=== PATIENT | male | born 1955 | race Caucasian/White ===

== ENCOUNTER 2020-06-20 04:59 | Inpatient (IN) ==
[2020-06-20] MEDS ORDERED: Aspirin 81 MG TAB.CHEW PO ONE (05:27)
[2020-06-20] MEDS ORDERED: *HR* Heparin 5,000 UNIT/ML VIAL ONE (05:31)
[2020-06-20] MEDS: *HR* Ticagrelor 90 MG TABLET ONE (05:33)
[2020-06-20] MEDS ORDERED: *HR* Ticagrelor 90 MG TABLET PO ONE (05:38)
[2020-06-20] MEDS ORDERED: *HR* Heparin 5,000 UNIT/ML VIAL IVP ONE (05:38)
[2020-06-20] MEDS ORDERED: *HR* Heparin 5,000 UNIT/ML VIAL IVP PRN ×2 (05:38)
[2020-06-20] MEDS ORDERED: Nitroglycerin 0.4 MG TAB.SUBL SL ONE (05:43)
[2020-06-20] MEDS ORDERED: 0.9 % Sodium Chloride 1,000 ML ONE ×2 (05:43→07:13)
[2020-06-20] MEDS ORDERED: Morphine Sulfate 2 MG/ML SYRINGE IVP ONE (05:44)
[2020-06-20] MEDS ORDERED: ISOVUE-370 200 ML INFUS..BTL ONE ×4 (05:50→07:11)
[2020-06-20] MEDS ORDERED: *HR* Heparin 10,000 UNIT/10 ML VIAL ONE ×2 (05:50→07:14)
[2020-06-20] MEDS ORDERED: 0.9 % Sodium Chloride 2,000 ML ONE (05:50)
[2020-06-20] MEDS ORDERED: Heparin 1,000 UNITS/500 mL 500 ML ONE ×5 (05:50→07:18)
[2020-06-20] MEDS ORDERED: Nitroglycerin 1,000 MCG/10 ML VIAL IV ONE (05:50)
[2020-06-20 05:53] LABS: Basophils % 0.4 %; Eosinophils # 0.1 K/mcL (0.0-0.6); Hematocrit 45.8 % (37.5-50.1); Hemoglobin 15.3 g/dL (12.9-16.9); Immature Granulocytes % 0.4 % (0-4); Lymphocytes # 1.7 K/mcL (0.6-4.6); Lymphocytes % 17.7 %; Mean Corpuscular HGB Conc 33.4 g/dL (31.6-35.5); Mean Corpuscular Hemoglobin 31.4 pg (28.0-33.3); Mean Platelet Volume 12.3 fL (9.4-12.4); Monocytes # 0.8 K/mcL (0.0-1.3); Monocytes % 8.5 %; Neutrophils # 6.7 K/mcL (1.6-8.9); Platelet Count 190 K/mcL (140-400); Red Blood Count 4.87 M/mcL (4.19-5.50); Red Cell Distribution Width 12.8 % (11.5-14.5); White Blood Count 9.4 K/mcL (4.3-11.1)
[2020-06-20 05:58] LABS: Prothrombin Time 11.1 Seconds (9.4-12.1)
[2020-06-20 06:01] LABS: Activated Partial Thrombo Time 38.1 Seconds (26.0-36.0)
[2020-06-20] MEDS: Heparin 25,000 UNIT/250 ML D5W 25,000 UNIT/250 ML IV.SOLN IVC SCH (06:01)
[2020-06-20 06:02] LABS: BUN/Creatinine Ratio 21 (6-26); Blood Urea Nitrogen 22 mg/dL (8-23); Calcium 10.3 mg/dL (8.6-10.3); Carbon Dioxide 22 mEq/L (23-29); Chloride 99 mEq/L (98-107); Glucose 367 mg/dL (70-105); Magnesium 1.7 mg/dL (1.6-2.6); Osmolality,Calculated 298 (280-300); Potassium 3.5 mEq/L (3.5-5.1); Sodium 135 mEq/L (136-145); eGFR For African Americans > 60 (> 60); eGFR For Non-African Americans > 60 (> 60)
[2020-06-20 06:04] LABS: Troponin I 0.12 ng/mL (< 0.04)
[2020-06-20 06:07] LABS: Heparin anti-factor XA UFH < 0.04 IU/mL (0.30-0.70)
[2020-06-20] MEDS ORDERED: *HR* FentaNYL (PF) 100 MCG/2 ML VIAL ONE ×2 (06:22→07:21)
[2020-06-20] MEDS ORDERED: *HR* Midazolam HCl 2 MG/2 ML VIAL ONE (06:22)
[2020-06-20] MEDS ORDERED: *HR* Midazolam HCl 5 MG/5 ML VIAL IVP ONE ×2 (07:37→11:25)
[2020-06-20] MEDS ORDERED: Tranexamic Acid 1,000 MG/10 ML VIAL ONE ×2 (07:37→09:50)
[2020-06-20] MEDS ORDERED: Famotidine 20 MG/2 ML VIAL ONE (07:37)
[2020-06-20] MEDS ORDERED: *HR* Etomidate 20 MG/10 ML AMPUL IVP ONE (07:37)
[2020-06-20] MEDS ORDERED: *HR* FentaNYL (PF) 1,000 MCG/20 ML VIAL ONE (07:37)
[2020-06-20] MEDS ORDERED: Calcium Gluconate 1,000 MG/10 ML VIAL ONE (07:37)
[2020-06-20] MEDS ORDERED: *HR* PHENYLEPHRINE 1,000 MCG/10 ML SYRINGE IVP ONE ×2 (07:37→13:08)
[2020-06-20] MEDS ORDERED: Protamine Sulfate 250 MG/25 ML VIAL IVP ONE (07:37)
[2020-06-20] MEDS ORDERED: *HR* Rocuronium Bromide 50 MG/5 ML VIAL ONE ×4 (07:37→12:31)
[2020-06-20] MEDS ORDERED: Ondansetron 4 MG/2 ML VIAL IVP PRN (07:57)
[2020-06-20] MEDS ORDERED: CeFAZolin Syr 3,000MG/30 ML 3,000 MG/30 ML SYRINGE IVPB ONE (08:50)
[2020-06-20] MEDS ORDERED: NiCARdipine 2.5 MG/10 ML Syringe IVPB ONE (09:03)
[2020-06-20 09:45] LABS: Estimated Average Glucose 189 mg/dl
[2020-06-20] MEDS ORDERED: Dextrose 50 % in Water (Vial) 30 ML, Sodium Bicarbonate 20 MEQ, Lidocaine 1% 5 ML, Insu... TH ONE ×3 (09:45)
[2020-06-20] MEDS ORDERED: Heparin 15,000 UNIT in 0.9 % Sodium Chloride 500 ML IV ONE (09:45)
[2020-06-20] MEDS ORDERED: Dextrose 50 % in Water (Vial) 30 ML, Sodium Bicarbonate 20 MEQ, Potassium Chloride 15 M... TH ONE (09:45)
[2020-06-20] MEDS ORDERED: Insulin Human Regular 100 UNIT in 0.9 % Sodium Chloride 100 ML IV PRN (09:45)
[2020-06-20] MEDS ORDERED: Norepinephrine 4 MG in 0.9 % Sodium Chloride 250 ML IVC PRN (09:45)
[2020-06-20] MEDS ORDERED: *HR* FentaNYL (PF) 250 MCG/5 ML VIAL ONE (11:25)
[2020-06-20] MEDS ORDERED: Albumin Human 5% 50.0 GM/1,000 ML IV.SOLN ONE (12:17)
[2020-06-20] MEDS ORDERED: niCARdipine 20 MG/200 ML MLS IVC ONE (12:23)
[2020-06-20] MEDS ORDERED: *HR* FentaNYL (PF) 100 MCG/2 ML VIAL IVP PRN (13:00)
[2020-06-20] MEDS ORDERED: *HR* Dextrose 50 % in Water (Vial) 50 ML VIAL IVP PRN (13:00)
[2020-06-20] MEDS ORDERED: Naloxone 0.4 MG/ML INJ IVP PRN (13:00)
[2020-06-20] MEDS ORDERED: Norepinephrine 4 MG/254 ML IV.SOLN IVC SCH (13:00)
[2020-06-20] MEDS ORDERED: Acetaminophen 650 MG RECTAL SUPP RC PRN (13:00)
[2020-06-20] MEDS ORDERED: Calcium Gluconate 1gm/50mL 1 GM/50 ML BAG IVPB PRN (13:00)
[2020-06-20] MEDS ORDERED: Insulin Regular, Human 100 UNIT/ML IV PRN (13:00)
[2020-06-20] MEDS ORDERED: EPINEPHrine 1 MG/ML VIAL ONE (13:09)
[2020-06-20] MEDS ORDERED: *HR* Magnesium Sulfate 2 GM/50 ML PIGGYBACK IVPB ONE (13:34)
[2020-06-20] MEDS ORDERED: *HR* Phenylephrine 10 MG/ML VIAL IVC ONE (13:34)
[2020-06-20] MEDS ORDERED: *HR* Heparin 10,000 UNIT/10 ML VIAL IR ONE (13:34)
[2020-06-20] MEDS ORDERED: Tranexamic Acid 1,000 MG/10 ML VIAL IR ONE (13:34)
[2020-06-20] MEDS ORDERED: Albumin Human 25% 25 GM/100 ML IV.SOLN IVPB ONE (13:34)
[2020-06-20] MEDS ORDERED: Mannitol 25% vial 12.5 GM/50 ML VIAL IVPB ONE (13:34)
[2020-06-20] MEDS ORDERED: Heparin 1,000 UNITS/500 mL IV.SOLN IR ONE (13:34)
[2020-06-20] MEDS ORDERED: Lidocaine 2% Syringe 100 MG/5 ML IVP ONE (13:34)
[2020-06-20] MEDS ORDERED: Sodium Bicarbonate 50 MEQ/50 ML VIAL IVP ONE (13:34)
[2020-06-20] MEDS ORDERED: D5% in Water 250 ML IV BAG IV ONE (13:34)
[2020-06-20] MEDS: niCARdipine 20 MG/200 ML MLS IVC SCH ×3 (13:40→21:47)
[2020-06-20] MEDS: Insulin Human Regular 100 UNIT in 0.9 % Sodium Chloride 100 ML IVC SCH ×3 (13:40→22:17)
[2020-06-20 14:08] LABS: Hematocrit 38.1 % (37.5-50.1); Mean Corpuscular HGB Conc 33.6 g/dL (31.6-35.5); Mean Corpuscular Hemoglobin 32.5 pg (28.0-33.3); Mean Corpuscular Volume 96.7 fL (83.0-100.0); Mean Platelet Volume 11.2 fL (9.4-12.4); Platelet Count 165 K/mcL (140-400); Red Blood Count 3.94 M/mcL (4.19-5.50); Red Cell Distribution Width 12.8 % (11.5-14.5)
[2020-06-20 14:09] LABS: Hemoglobin 12.8 g/dL (12.9-16.9); White Blood Count 25.1 K/mcL (4.3-11.1)
[2020-06-20 14:17] LABS: INR 1.3
[2020-06-20 14:20] LABS: Activated Partial Thrombo Time 30.1 Seconds (26.0-36.0)
[2020-06-20 14:23] LABS: BUN/Creatinine Ratio 16 (6-26); Blood Urea Nitrogen 16 mg/dL (8-23); Calcium 7.7 mg/dL (8.6-10.3); Carbon Dioxide 28 mEq/L (23-29); Chloride 106 mEq/L (98-107); Glucose 223 mg/dL (70-105); Magnesium 2.1 mg/dL (1.6-2.6); Osmolality,Calculated 298 (280-300); Potassium 4.1 mEq/L (3.5-5.1); Sodium 140 mEq/L (136-145); eGFR For African Americans > 60 (> 60); eGFR For Non-African Americans > 60 (> 60)
[2020-06-20 14:29] LABS: Prothrombin Time 14.9 Seconds (9.4-12.1)
[2020-06-20 14:55] LABS: ABG Base Excess -3 mEq/L (-2 to 3); ABG HCO3 27 mEq/L (21-27); ABG Oxygen Saturation 86 % (95-98); ABG PCO2 76 mmHg (35-45); ABG PH 7.16 pH Units (7.32-7.45); ABG PO2 68 mmHg (85-104); ABG TCO2 29 mEq/L (20-26); Blood Gas Modality ASSIST CONTROL; Blood Gas VT 750 cc
[2020-06-20 14:55] LABS: Lymphocytes # 3.5 K/mcL (0.6-4.6); Monocytes # 0.5 K/mcL (0.0-1.3); Neutrophils # 21.1 K/mcL (1.6-8.9); Platelet Estimate Normal (Normal)
[2020-06-20 14:55] LABS: ABG Base Excess -2 mEq/L (-2 to 3); ABG HCO3 28 mEq/L (21-27); ABG Oxygen Saturation 93 % (95-98); ABG PCO2 74 mmHg (35-45); ABG PH 7.18 pH Units (7.32-7.45); ABG PO2 85 mmHg (85-104); ABG TCO2 30 mEq/L (20-26); Blood Gas Modality ASSIST CONTROL; Blood Gas VT 750 cc
[2020-06-20] MEDS: Albumin Human 5% 12.5 GM/250 ML IV.SOLN IVPB PRN ×4 (15:10→20:02)
[2020-06-20 16:13] LABS: ABG Base Excess -2 mEq/L (-2 to 3); ABG HCO3 28 mEq/L (21-27); ABG Oxygen Saturation 99 % (95-98); ABG PCO2 80 mmHg (35-45); ABG PH 7.16 pH Units (7.32-7.45); ABG PO2 161 mmHg (85-104); ABG TCO2 31 mEq/L (20-26); Blood Gas Modality ASSIST CONTROL; Blood Gas VT 500 cc
[2020-06-20] MEDS: ceFAZolin 3,000 MG in 0.9 % Sodium Chloride 100 ML IVPB SCH ×2 (16:27→23:53)
[2020-06-20] MEDS: Ipratropium/Albuterol Neb 3 ML IH SCH ×2 (16:27→21:45)
[2020-06-20] MEDS: 0.9 % Sodium Chloride 1,000 ML IVC SCH ×2 (16:27→19:39)
[2020-06-20] MEDS: Pantoprazole 40 MG VIAL IVP SCH (16:28)
[2020-06-20] MEDS: Metoclopramide 10 MG/2 ML VIAL IVP SCH ×2 (16:28→23:53)
[2020-06-20] MEDS: MethylPREDNISolone 40 MG/ML VIAL IVP SCH (16:33)
[2020-06-20] MEDS: Budesonide/Formoterol 160/4.5 1 PUFF INH IH SCH ×2 (16:55→19:21)
[2020-06-20 17:10] LABS: ABG Base Excess -2 mEq/L (-2 to 3); ABG HCO3 28 mEq/L (21-27); ABG Oxygen Saturation 98 % (95-98); ABG PCO2 80 mmHg (35-45); ABG PH 7.15 pH Units (7.32-7.45); ABG PO2 151 mmHg (85-104); ABG TCO2 30 mEq/L (20-26); Blood Gas Modality ASSIST CONTROL; Blood Gas VT 530 cc
[2020-06-20] MEDS: Midazolam HCl 50 MG/100 ML IV.SOLN IVC SCH (18:00)
[2020-06-20] MEDS: FentaNYL (PF) 1,000 MCG/100 ML IV.SOLN IVC SCH (18:00)
[2020-06-20] MEDS ORDERED: Perflutren Lipid Microsphere 1.3 ML in 0.9 % Sodium Chloride 8.7 ML IVP PRN (18:51)
[2020-06-20] MEDS ORDERED: Calcium Chloride 2,000 MG in 0.9 % Sodium Chloride 100 ML IVPB ONE (18:55)
[2020-06-20 19:21] LABS: ABG Base Excess -1 mEq/L (-2 to 3); ABG HCO3 28 mEq/L (21-27); ABG Oxygen Saturation 99 % (95-98); ABG PCO2 76 mmHg (35-45); ABG PH 7.17 pH Units (7.32-7.45); ABG PO2 183 mmHg (85-104); ABG TCO2 30 mEq/L (20-26); Blood Gas Modality ASSIST CONTROL; Blood Gas VT 550 cc
[2020-06-20 19:40] LABS: Basophils # 0.1 K/mcL (0.0-0.2); Basophils % 0.2 %; Hematocrit 28.8 % (37.5-50.1); Immature Granulocytes % 1.8 % (0-4); Lymphocytes # 1.1 K/mcL (0.6-4.6); Lymphocytes % 4.7 %; Mean Corpuscular HGB Conc 32.6 g/dL (31.6-35.5); Mean Corpuscular Hemoglobin 32.4 pg (28.0-33.3); Mean Corpuscular Volume 99.3 fL (83.0-100.0); Mean Platelet Volume 11.6 fL (9.4-12.4); Monocytes # 2.7 K/mcL (0.0-1.3); Monocytes % 11.1 %; Neutrophils # 19.8 K/mcL (1.6-8.9); Platelet Count 143 K/mcL (140-400); Red Cell Distribution Width 13.2 % (11.5-14.5); Segmented Neutrophils % 82.2 %
[2020-06-20 19:41] LABS: Hemoglobin 9.4 g/dL (12.9-16.9)
[2020-06-20 19:42] LABS: INR 1.2
[2020-06-20 19:44] LABS: Activated Partial Thrombo Time 28.2 Seconds (26.0-36.0)
[2020-06-20 19:54] LABS: Alanine Aminotransferase 30 Units/L (7-52); Albumin 3.8 g/dL (3.5-5.7); Albumin/Globulin Ratio 2.9 (1.1-2.2); Alkaline Phosphatase 29 Units/L (34-104); Aspartate Amino Transferase 134 Units/L (13-39); BUN/Creatinine Ratio 14 (6-26); Bilirubin,Total 0.8 mg/dL (0.3-1.0); Blood Urea Nitrogen 18 mg/dL (8-23); Calcium 8.4 mg/dL (8.6-10.3); Carbon Dioxide 25 mEq/L (23-29); Chloride 107 mEq/L (98-107); Globulin 1.3 g/dL (2.4-3.5); Glucose 226 mg/dL (70-105); Osmolality,Calculated 303 (280-300); Potassium 3.9 mEq/L (3.5-5.1); Sodium 142 mEq/L (136-145); Total Protein 5.1 g/dL (6.4-8.9); eGFR For African Americans > 60 (> 60); eGFR For Non-African Americans 57 (> 60)
[2020-06-20] MEDS ORDERED: 0.9 % Sodium Chloride 500 ML ONE (20:33)
[2020-06-20] MEDS: Norepinephrine 8 MG in 0.9 % Sodium Chloride 250 ML IVC SCH (21:28)
[2020-06-20] MEDS: Chlorhexidine Rinse 15 ML MOUTHWASH MM SCH (21:47)
[2020-06-20 22:01] LABS: ABG Base Excess -1 mEq/L (-2 to 3); ABG HCO3 28 mEq/L (21-27); ABG Oxygen Saturation 88 % (95-98); ABG PCO2 72 mmHg (35-45); ABG PH 7.19 pH Units (7.32-7.45); ABG PO2 69 mmHg (85-104); ABG TCO2 30 mEq/L (20-26); Blood Gas Modality ASSIST CONTROL; Blood Gas VT 600 cc
[2020-06-21] MEDS ORDERED: Albumin Human 5% 12.5 GM/250 ML IV.SOLN ONE (01:06)
[2020-06-21] MEDS: Albumin Human 5% 12.5 GM/250 ML IV.SOLN IVPB PRN ×2 (01:22→10:30)
[2020-06-21 01:24] LABS: ABG Base Excess 3 mEq/L (-2 to 3); ABG HCO3 30 mEq/L (21-27); ABG Oxygen Saturation 96 % (95-98); ABG PCO2 66 mmHg (35-45); ABG PH 7.26 pH Units (7.32-7.45); ABG PO2 95 mmHg (85-104); ABG TCO2 32 mEq/L (20-26); Blood Gas Modality ASSIST CONTROL; Blood Gas VT 600 cc
[2020-06-21 01:33] LABS: Basophils % 0.1 %; Hematocrit 20.8 % (37.5-50.1); Immature Granulocytes % 0.9 % (0-4); Lymphocytes # 0.8 K/mcL (0.6-4.6); Mean Corpuscular HGB Conc 32.7 g/dL (31.6-35.5); Mean Corpuscular Hemoglobin 32.4 pg (28.0-33.3); Mean Platelet Volume 10.7 fL (9.4-12.4); Monocytes # 2.2 K/mcL (0.0-1.3); Monocytes % 14.2 %; Neutrophils # 12.3 K/mcL (1.6-8.9); Platelet Count 130 K/mcL (140-400); Red Cell Distribution Width 13.2 % (11.5-14.5); Segmented Neutrophils % 79.8 %; White Blood Count 15.5 K/mcL (4.3-11.1)
[2020-06-21 01:35] LABS: Hemoglobin 6.8 g/dL (12.9-16.9)
[2020-06-21] MEDS: 0.9 % Sodium Chloride 1,000 ML IVC SCH (01:54)
[2020-06-21] MEDS: Norepinephrine 8 MG in 0.9 % Sodium Chloride 250 ML IVC SCH ×3 (01:54→23:09)
[2020-06-21] MEDS: Vasopressin 40 UNIT in D5% in Water 100 ML IVC SCH ×2 (01:58→17:35)
[2020-06-21] MEDS: niCARdipine 20 MG/200 ML MLS IVC SCH ×7 (02:36→23:54)
[2020-06-21] MEDS: Heparin 25,000 UNIT/250 ML D5W 25,000 UNIT/250 ML IV.SOLN IVC SCH ×2 (02:37→23:55)
[2020-06-21] MEDS: Ipratropium/Albuterol Neb 3 ML IH SCH ×4 (03:45→21:40)
[2020-06-21] MEDS: FentaNYL (PF) 1,000 MCG/100 ML IV.SOLN IVC SCH ×3 (04:05→20:59)
[2020-06-21 05:04] LABS: ABG Base Excess 3 mEq/L (-2 to 3); ABG HCO3 31 mEq/L (21-27); ABG Oxygen Saturation 94 % (95-98); ABG PCO2 65 mmHg (35-45); ABG PH 7.29 pH Units (7.32-7.45); ABG PO2 82 mmHg (85-104); ABG TCO2 33 mEq/L (20-26); Blood Gas Modality ASSIST CONTROL; Blood Gas VT 600 cc
[2020-06-21] MEDS: MethylPREDNISolone 40 MG/ML VIAL IVP SCH ×2 (05:09→17:34)
[2020-06-21] MEDS: Metoclopramide 10 MG/2 ML VIAL IVP SCH ×4 (05:09→23:53)
[2020-06-21 06:28] LABS: Basophils % 0.1 %; Lymphocytes % 7.6 %
[2020-06-21 06:30] LABS: Hematocrit 25.4 % (37.5-50.1); Hemoglobin 8.4 g/dL (12.9-16.9); Immature Granulocytes % 0.5 % (0-4); Immature Platelets 9.5 % (1.1-6.1); Mean Corpuscular HGB Conc 33.1 g/dL (31.6-35.5); Mean Corpuscular Hemoglobin 31.2 pg (28.0-33.3); Mean Corpuscular Volume 94.4 fL (83.0-100.0); Monocytes % 15.3 %; Neutrophils # 9.8 K/mcL (1.6-8.9); Platelet Count 102 K/mcL (140-400); Red Blood Count 2.69 M/mcL (4.19-5.50); Red Cell Distribution Width 15.9 % (11.5-14.5); Segmented Neutrophils % 76.5 %; White Blood Count 12.8 K/mcL (4.3-11.1)
[2020-06-21 06:37] LABS: INR 1.2; Prothrombin Time 13.3 Seconds (9.4-12.1)
[2020-06-21 06:39] LABS: Activated Partial Thrombo Time 26.2 Seconds (26.0-36.0)
[2020-06-21 06:44] LABS: BUN/Creatinine Ratio 15 (6-26); Blood Urea Nitrogen 17 mg/dL (8-23); Carbon Dioxide 30 mEq/L (23-29); Chloride 109 mEq/L (98-107); Glucose 164 mg/dL (70-105); Magnesium 1.8 mg/dL (1.6-2.6); Osmolality,Calculated 299 (280-300); Potassium 4.1 mEq/L (3.5-5.1); Sodium 142 mEq/L (136-145); eGFR For African Americans > 60 (> 60); eGFR For Non-African Americans > 60 (> 60)
[2020-06-21] MEDS: Budesonide/Formoterol 160/4.5 1 PUFF INH IH SCH ×2 (07:12→19:51)
[2020-06-21] MEDS: Insulin Human Regular 100 UNIT in 0.9 % Sodium Chloride 100 ML IVC SCH ×2 (07:40→23:09)
[2020-06-21 08:17] LABS: Albumin 3.6 g/dL (3.5-5.7); Albumin/Globulin Ratio 2.4 (1.1-2.2); Bilirubin,Direct 0.2 mg/dL (0.0-0.2); Bilirubin,Indirect 0.5 mg/dL (0.0-1.0); Bilirubin,Total 0.7 mg/dL (0.3-1.0); Globulin 1.5 g/dL (2.4-3.5); Total Protein 5.1 g/dL (6.4-8.9)
[2020-06-21] MEDS: Chlorhexidine Rinse 15 ML MOUTHWASH MM SCH ×2 (08:54→20:28)
[2020-06-21] MEDS: Pantoprazole 40 MG VIAL IVP SCH (08:54)
[2020-06-21] MEDS: Aspirin Enteric Coated 81 MG Tablet PO SCH (13:02)
[2020-06-21] MEDS: Furosemide 20 MG/2 ML VIAL IVP SCH ×2 (13:03→20:28)
[2020-06-21 13:27] LABS: VBG HCO3 30 mEq/L (21-27); VBG PCO2 65 mmHg (41-51); VBG PO2 137 mmHg (25-50)
[2020-06-21 14:51] LABS: VBG PH 7.28 pH Units (7.32-7.42)
[2020-06-21] MEDS ORDERED: 0.9 % Sodium Chloride 500 ML ONE (16:51)
[2020-06-21] MEDS: Midazolam HCl 50 MG/100 ML IV.SOLN IVC SCH (17:35)
[2020-06-22] MEDS: Ipratropium/Albuterol Neb 3 ML IH SCH ×4 (03:32→21:20)
[2020-06-22 03:58] LABS: ABG Base Excess 6 mEq/L (-2 to 3); ABG HCO3 33 mEq/L (21-27); ABG Oxygen Saturation 93 % (95-98); ABG PCO2 60 mmHg (35-45); ABG PH 7.34 pH Units (7.32-7.45); ABG PO2 74 mmHg (85-104); ABG TCO2 34 mEq/L (20-26); Blood Gas VT 500 cc
[2020-06-22] MEDS: niCARdipine 20 MG/200 ML MLS IVC SCH ×5 (04:04→23:07)
[2020-06-22 04:16] LABS: Basophils % 0.1 %; Hemoglobin 7.2 g/dL (12.9-16.9); Immature Granulocytes % 0.7 % (0-4); Nucleated Red Blood Cells 0.2 /100 WBC (0)
[2020-06-22 04:18] LABS: Hematocrit 22.7 % (37.5-50.1); Lymphocytes # 1.1 K/mcL (0.6-4.6); Lymphocytes % 8.4 %; Mean Corpuscular HGB Conc 31.7 g/dL (31.6-35.5); Mean Corpuscular Hemoglobin 30.6 pg (28.0-33.3); Mean Corpuscular Volume 96.6 fL (83.0-100.0); Mean Platelet Volume 12.3 fL (9.4-12.4); Monocytes # 1.8 K/mcL (0.0-1.3); Neutrophils # 9.8 K/mcL (1.6-8.9); Red Blood Count 2.35 M/mcL (4.19-5.50); Red Cell Distribution Width 16.3 % (11.5-14.5); Segmented Neutrophils % 76.8 %; White Blood Count 12.8 K/mcL (4.3-11.1)
[2020-06-22 04:35] LABS: BUN/Creatinine Ratio 19 (6-26); Blood Urea Nitrogen 23 mg/dL (8-23); Calcium 8.3 mg/dL (8.6-10.3); Carbon Dioxide 28 mEq/L (23-29); Chloride 109 mEq/L (98-107); Glucose 139 mg/dL (70-105); Osmolality,Calculated 300 (280-300); Potassium 4.6 mEq/L (3.5-5.1); Sodium 142 mEq/L (136-145); eGFR For African Americans > 60 (> 60); eGFR For Non-African Americans > 60 (> 60)
[2020-06-22 04:40] LABS: Platelet Count 79 K/mcL (140-400)
[2020-06-22] MEDS: Metoclopramide 10 MG/2 ML VIAL IVP SCH ×4 (04:51→23:07)
[2020-06-22] MEDS: MethylPREDNISolone 40 MG/ML VIAL IVP SCH ×2 (04:51→17:04)
[2020-06-22] MEDS: FentaNYL (PF) 1,000 MCG/100 ML IV.SOLN IVC SCH ×4 (05:51→23:07)
[2020-06-22] MEDS ORDERED: Perflutren Lipid Microsphere 1.3 ML in 0.9 % Sodium Chloride 8.7 ML IVP PRN (07:01)
[2020-06-22] MEDS: Aspirin Enteric Coated 81 MG Tablet PO SCH (07:15)
[2020-06-22] MEDS: Furosemide 20 MG/2 ML VIAL IVP SCH ×3 (07:16→19:53)
[2020-06-22] MEDS: Budesonide/Formoterol 160/4.5 1 PUFF INH IH SCH ×2 (07:29→19:54)
[2020-06-22] MEDS ORDERED: 0.9 % Sodium Chloride 250 ML ONE (07:50)
[2020-06-22] MEDS: Pantoprazole 40 MG VIAL IVP SCH (07:55)
[2020-06-22] MEDS: Chlorhexidine Rinse 15 ML MOUTHWASH MM SCH ×2 (07:55→19:53)
[2020-06-22] MEDS: Dexmedetomidine HCl 400 MCG/100 ML MLS IVC SCH ×4 (08:02→20:32)
[2020-06-22] MEDS: Vasopressin 40 UNIT in D5% in Water 100 ML IVC SCH (08:03)
[2020-06-22] MEDS: Midazolam HCl 50 MG/100 ML IV.SOLN IVC SCH ×2 (08:18→17:54)
[2020-06-22] MEDS: Norepinephrine 8 MG in 0.9 % Sodium Chloride 250 ML IVC SCH (09:03)
[2020-06-22] MEDS: Insulin Human Regular 100 UNIT in 0.9 % Sodium Chloride 100 ML IVC SCH (13:04)
[2020-06-22 15:45] LABS: ABG Base Excess 4 mEq/L (-2 to 3); ABG HCO3 30 mEq/L (21-27); ABG Oxygen Saturation 91 % (95-98); ABG PCO2 53 mmHg (35-45); ABG PH 7.37 pH Units (7.32-7.45); ABG PO2 65 mmHg (85-104); ABG TCO2 32 mEq/L (20-26); Blood Gas VT 550 cc
[2020-06-23] MEDS: Dexmedetomidine HCl 400 MCG/100 ML MLS IVC SCH ×3 (00:47→08:34)
[2020-06-23] MEDS: niCARdipine 20 MG/200 ML MLS IVC SCH ×6 (03:29→23:59)
[2020-06-23] MEDS: FentaNYL (PF) 1,000 MCG/100 ML IV.SOLN IVC SCH (03:30)
[2020-06-23] MEDS: Heparin 25,000 UNIT/250 ML D5W 25,000 UNIT/250 ML IV.SOLN IVC SCH ×2 (03:30→23:59)
[2020-06-23 04:10] LABS: ABG Base Excess 6 mEq/L (-2 to 3); ABG HCO3 33 mEq/L (21-27); ABG Oxygen Saturation 92 % (95-98); ABG PCO2 56 mmHg (35-45); ABG PH 7.37 pH Units (7.32-7.45); ABG PO2 68 mmHg (85-104); ABG TCO2 34 mEq/L (20-26); Blood Gas VT 550 cc
[2020-06-23 04:30] LABS: Hematocrit 23.8 % (37.5-50.1); Hemoglobin 7.7 g/dL (12.9-16.9); Mean Corpuscular HGB Conc 32.4 g/dL (31.6-35.5)
[2020-06-23 04:32] LABS: Immature Granulocytes % 1.1 % (0-4); Immature Platelets 11.2 % (1.1-6.1); Lymphocytes # 0.8 K/mcL (0.6-4.6); Lymphocytes % 9.8 %; Mean Corpuscular Hemoglobin 31.4 pg (28.0-33.3); Mean Corpuscular Volume 97.1 fL (83.0-100.0); Mean Platelet Volume 11.6 fL (9.4-12.4); Monocytes % 11.5 %; Neutrophils # 6.6 K/mcL (1.6-8.9); Nucleated Red Blood Cells 1.5 /100 WBC (0); Red Blood Count 2.45 M/mcL (4.19-5.50); Red Cell Distribution Width 15.4 % (11.5-14.5); Segmented Neutrophils % 77.6 %; White Blood Count 8.5 K/mcL (4.3-11.1)
[2020-06-23 04:35] LABS: Platelet Count 69 K/mcL (140-400)
[2020-06-23 04:50] LABS: BUN/Creatinine Ratio 30 (6-26); Blood Urea Nitrogen 28 mg/dL (8-23); Calcium 8.3 mg/dL (8.6-10.3); Carbon Dioxide 30 mEq/L (23-29); Chloride 107 mEq/L (98-107); Glucose 169 mg/dL (70-105); Osmolality,Calculated 305 (280-300); Potassium 4.7 mEq/L (3.5-5.1); Sodium 143 mEq/L (136-145); eGFR For African Americans > 60 (> 60); eGFR For Non-African Americans > 60 (> 60)
[2020-06-23] MEDS: Metoclopramide 10 MG/2 ML VIAL IVP SCH ×3 (05:18→17:02)
[2020-06-23] MEDS: MethylPREDNISolone 40 MG/ML VIAL IVP SCH ×2 (05:18→17:02)
[2020-06-23] MEDS: FentaNYL (PF) 2,500 MCG/50 ML IV.SOLN IVC SCH ×2 (06:59→19:58)
[2020-06-23] MEDS: Aspirin Enteric Coated 81 MG Tablet PO SCH (07:20)
[2020-06-23] MEDS: Budesonide/Formoterol 160/4.5 1 PUFF INH IH SCH ×2 (07:24→19:38)
[2020-06-23] MEDS: Midazolam HCl 50 MG/100 ML IV.SOLN IVC SCH (07:31)
[2020-06-23] MEDS: Cefepime HCl 2,000 MG in Water for inj. (sterile) 20 ML IVP SCH ×3 (07:32→23:12)
[2020-06-23] MEDS: Furosemide 20 MG/2 ML VIAL IVP SCH ×2 (08:01→20:01)
[2020-06-23] MEDS: Pantoprazole 40 MG VIAL IVP SCH (08:01)
[2020-06-23] MEDS: Chlorhexidine Rinse 15 ML MOUTHWASH MM SCH ×2 (08:01→20:01)
[2020-06-23] MEDS: Insulin Human Regular 100 UNIT in 0.9 % Sodium Chloride 100 ML IVC SCH ×2 (08:20→23:13)
[2020-06-23] MEDS: Vasopressin 40 UNIT in D5% in Water 100 ML IVC SCH (10:24)
[2020-06-24 04:00] LABS: ABG Base Excess 6 mEq/L (-2 to 3); ABG HCO3 35 mEq/L (21-27); ABG Oxygen Saturation 90 % (95-98); ABG PCO2 75 mmHg (35-45); ABG PH 7.28 pH Units (7.32-7.45); ABG PO2 70 mmHg (85-104); ABG TCO2 37 mEq/L (20-26); Blood Gas VT 550 cc
[2020-06-24 04:18] LABS: Basophils % 0.1 %; Hematocrit 25.4 % (37.5-50.1); Hemoglobin 7.9 g/dL (12.9-16.9); Immature Platelets 10.2 % (1.1-6.1); Lymphocytes # 0.9 K/mcL (0.6-4.6); Lymphocytes % 9.1 %; Mean Corpuscular HGB Conc 31.1 g/dL (31.6-35.5); Mean Corpuscular Hemoglobin 31.7 pg (28.0-33.3); Monocytes # 1.1 K/mcL (0.0-1.3); Monocytes % 11.2 %; Neutrophils # 7.9 K/mcL (1.6-8.9); Nucleated Red Blood Cells 2.1 /100 WBC (0); Red Blood Count 2.49 M/mcL (4.19-5.50); Red Cell Distribution Width 15.2 % (11.5-14.5); Segmented Neutrophils % 77.6 %; White Blood Count 10.2 K/mcL (4.3-11.1)
[2020-06-24 04:21] LABS: Platelet Count 95 K/mcL (140-400)
[2020-06-24 04:31] LABS: BUN/Creatinine Ratio 42 (6-26); Blood Urea Nitrogen 34 mg/dL (8-23); Calcium 8.6 mg/dL (8.6-10.3); Carbon Dioxide 33 mEq/L (23-29); Chloride 108 mEq/L (98-107); Glucose 169 mg/dL (70-105); Osmolality,Calculated 310 (280-300); Potassium 4.6 mEq/L (3.5-5.1); Sodium 144 mEq/L (136-145); eGFR For African Americans > 60 (> 60); eGFR For Non-African Americans > 60 (> 60)
[2020-06-24 05:47] LABS: ABG Base Excess 8 mEq/L (-2 to 3); ABG HCO3 35 mEq/L (21-27); ABG Oxygen Saturation 92 % (95-98); ABG PCO2 73 mmHg (35-45); ABG PH 7.29 pH Units (7.32-7.45); ABG PO2 73 mmHg (85-104); ABG TCO2 38 mEq/L (20-26); Blood Gas VT 550 cc
[2020-06-24] MEDS: MethylPREDNISolone 40 MG/ML VIAL IVP SCH (05:59)
[2020-06-24] MEDS: Budesonide/Formoterol 160/4.5 1 PUFF INH IH SCH ×2 (07:15→19:52)
[2020-06-24] MEDS: FentaNYL (PF) 2,500 MCG/50 ML IV.SOLN IVC SCH ×2 (08:13→23:15)
[2020-06-24] MEDS ORDERED: Furosemide 40 MG/4 ML VIAL ONE (08:37)
[2020-06-24] MEDS ORDERED: Furosemide 40 MG/4 ML VIAL IVP ONE (08:39)
[2020-06-24] MEDS: Cefepime HCl 2,000 MG in Water for inj. (sterile) 20 ML IVP SCH ×3 (08:46→23:03)
[2020-06-24] MEDS: Chlorhexidine Rinse 15 ML MOUTHWASH MM SCH ×2 (08:47→20:35)
[2020-06-24] MEDS: Aspirin 81 MG TAB.CHEW PO SCH (08:47)
[2020-06-24] MEDS: Docusate Oral Soln 100 MG/10 ML UDC PO SCH ×2 (08:48→20:35)
[2020-06-24] MEDS: Pantoprazole 40 MG VIAL IVP SCH (08:48)
[2020-06-24] MEDS: Lacri-Lube 3.5 GM TUBE BOTH EYES SCH ×4 (11:12→23:04)
[2020-06-24] MEDS: *HR* Heparin 5,000 UNIT/ML VIAL SQ SCH ×2 (11:12→20:34)
[2020-06-24] MEDS: Insulin Human Regular 100 UNIT in 0.9 % Sodium Chloride 100 ML IVC SCH (12:05)
[2020-06-24] MEDS: methylPREDNISolone 125 MG/2 ML VIAL IVP SCH (16:37)
[2020-06-24] MEDS: niCARdipine 20 MG/200 ML MLS IVC SCH ×3 (20:33→23:04)
[2020-06-24] MEDS: Vasopressin 40 UNIT in D5% in Water 100 ML IVC SCH (20:34)
[2020-06-25] MEDS ORDERED: Isovue-370 500 ML BOTTLE IVP ONE (01:03)
[2020-06-25] MEDS: Insulin Human Regular 100 UNIT in 0.9 % Sodium Chloride 100 ML IVC SCH ×2 (03:00→17:30)
[2020-06-25] MEDS: niCARdipine 20 MG/200 ML MLS IVC SCH ×2 (04:38→08:03)
[2020-06-25] MEDS: *HR* Heparin 5,000 UNIT/ML VIAL SQ SCH ×3 (04:45→18:00)
[2020-06-25] MEDS: Lacri-Lube 3.5 GM TUBE BOTH EYES SCH ×6 (04:46→23:20)
[2020-06-25 04:58] LABS: ABG Base Excess 10 mEq/L (-2 to 3); ABG HCO3 38 mEq/L (21-27); ABG Oxygen Saturation 85 % (95-98); ABG PCO2 80 mmHg (35-45); ABG PH 7.29 pH Units (7.32-7.45); ABG PO2 59 mmHg (85-104); ABG TCO2 41 mEq/L (20-26); Blood Gas VT 550 cc
[2020-06-25 05:03] LABS: Basophils % 0.2 %; Eosinophils # 0.4 K/mcL (0.0-0.6); Eosinophils % 3.3 %; Hematocrit 24.8 % (37.5-50.1); Hemoglobin 7.9 g/dL (12.9-16.9); Immature Granulocytes % 0.7 % (0-4); Lymphocytes % 19.3 %; Mean Corpuscular HGB Conc 31.9 g/dL (31.6-35.5); Mean Corpuscular Hemoglobin 29.9 pg (28.0-33.3); Mean Corpuscular Volume 93.9 fL (83.0-100.0); Mean Platelet Volume 11.6 fL (9.4-12.4); Monocytes # 1.1 K/mcL (0.0-1.3); Monocytes % 10.2 %; Platelet Count 135 K/mcL (140-400); Red Blood Count 2.64 M/mcL (4.19-5.50); Red Cell Distribution Width 14.7 % (11.5-14.5); Segmented Neutrophils % 66.3 %; White Blood Count 10.5 K/mcL (4.3-11.1)
[2020-06-25] MEDS: methylPREDNISolone 125 MG/2 ML VIAL IVP SCH ×2 (05:14→17:00)
[2020-06-25 05:26] LABS: Calcium 8.6 mg/dL (8.6-10.3); Potassium 4.6 mEq/L (3.5-5.1)
[2020-06-25] MEDS: Cefepime HCl 2,000 MG in Water for inj. (sterile) 20 ML IVP SCH ×3 (07:13→23:20)
[2020-06-25] MEDS: FentaNYL (PF) 2,500 MCG/50 ML IV.SOLN IVC SCH ×2 (07:21→17:26)
[2020-06-25] MEDS: Budesonide/Formoterol 160/4.5 1 PUFF INH IH SCH ×2 (07:48→19:37)
[2020-06-25 07:57] LABS: Uric Acid 11.3 mg/dL (2.3-7.6)
[2020-06-25] MEDS: Aspirin 81 MG TAB.CHEW PO SCH (08:03)
[2020-06-25] MEDS: Pantoprazole 40 MG VIAL IVP SCH (08:03)
[2020-06-25] MEDS: Docusate Oral Soln 100 MG/10 ML UDC PO SCH ×2 (08:03→20:19)
[2020-06-25] MEDS: Chlorhexidine Rinse 15 ML MOUTHWASH MM SCH ×2 (08:03→20:19)
[2020-06-25] MEDS: Vasopressin 40 UNIT in D5% in Water 100 ML IVC SCH (08:04)
[2020-06-25] MEDS: Midazolam HCl 50 MG/100 ML IV.SOLN IVC SCH (08:28)
[2020-06-25 08:37] LABS: Creatinine,Urine 80 mg/dL; Sodium, Urine < 10.0 mEq/L
[2020-06-25] MEDS ORDERED: *HR* Midazolam HCl 5 MG/5 ML VIAL IVP ONE (08:47)
[2020-06-25 09:49] LABS: Bilirubin,Urine Negative (Negative); Blood,Urine Trace (Negative); Clarity,Urine Clear (Clear); Color,Urine Colorless (Yellow); Glucose,Urine (UA) Normal (Normal); Ketones,Urine Negative (Negative); Leukocyte Esterase,Urine Negative (Negative); Nitrite,Urine Negative (Negative); PH,Urine 6.5 pH Units (5.0-8.0); Protein,Urine Trace mg/dL (Neg-Trace); RBC,Urine 30-50 per hpf (0-3); Specific Gravity,Urine > 1.030 (1.010-1.025); Urobilinogen,Urine Normal (Normal); WBC,Urine 0-3 per hpf (0-3)
[2020-06-25 09:55] LABS: Creatinine,Urine 87 mg/dL; Microalbumin,Urine < 7 mg/L; Protein/Creatinine Ratio,Urine 0.29 mg/mg (0.00-0.20); Sodium, Urine < 10.0 mEq/L
[2020-06-25 10:11] LABS: BUN/Creatinine Ratio 52 (6-26); Blood Urea Nitrogen 42 mg/dL (8-23); Calcium 8.6 mg/dL (8.6-10.3); Carbon Dioxide 34 mEq/L (23-29); Chloride 107 mEq/L (98-107); Glucose 139 mg/dL (70-105); Osmolality,Calculated 313 (280-300); Potassium 4.8 mEq/L (3.5-5.1); Sodium 145 mEq/L (136-145); eGFR For African Americans > 60 (> 60); eGFR For Non-African Americans > 60 (> 60)
[2020-06-25] MEDS: Furosemide 40 MG/4 ML VIAL IVP SCH ×2 (10:56→20:19)
[2020-06-25 11:02] LABS: Magnesium 2.5 mg/dL (1.6-2.6)
[2020-06-25 12:41] LABS: Appearance of Body Fluid Cloudy (Clear); Volume of Body Fluid 15 mL
[2020-06-25] MEDS: Dexmedetomidine HCl 400 MCG/100 ML MLS IVC SCH (23:20)
[2020-06-26] MEDS: *HR* Heparin 5,000 UNIT/ML VIAL SQ SCH ×3 (02:31→18:35)
[2020-06-26] MEDS: Lacri-Lube 3.5 GM TUBE BOTH EYES SCH ×5 (03:39→20:08)
[2020-06-26 03:43] LABS: Basophils % 0.3 %; Hematocrit 25.9 % (37.5-50.1); Hemoglobin 8.2 g/dL (12.9-16.9); Immature Granulocytes % 2.8 % (0-4); Lymphocytes # 0.9 K/mcL (0.6-4.6); Lymphocytes % 8.3 %; Mean Corpuscular HGB Conc 31.7 g/dL (31.6-35.5); Mean Corpuscular Hemoglobin 32.2 pg (28.0-33.3); Mean Platelet Volume 12.3 fL (9.4-12.4); Monocytes # 1.4 K/mcL (0.0-1.3); Monocytes % 12.6 %; Neutrophils # 8.2 K/mcL (1.6-8.9); Nucleated Red Blood Cells 6.5 /100 WBC (0); Platelet Count 124 K/mcL (140-400); Red Blood Count 2.55 M/mcL (4.19-5.50); Red Cell Distribution Width 15.4 % (11.5-14.5); White Blood Count 10.8 K/mcL (4.3-11.1)
[2020-06-26 03:46] LABS: Mean Corpuscular Volume 101.6 fL (83.0-100.0)
[2020-06-26 03:59] LABS: BUN/Creatinine Ratio 58 (6-26); Blood Urea Nitrogen 47 mg/dL (8-23); Calcium 9.1 mg/dL (8.6-10.3); Carbon Dioxide 34 mEq/L (23-29); Chloride 108 mEq/L (98-107); Glucose 150 mg/dL (70-105); Osmolality,Calculated 319 (280-300); Potassium 4.4 mEq/L (3.5-5.1); Sodium 147 mEq/L (136-145); eGFR For African Americans > 60 (> 60); eGFR For Non-African Americans > 60 (> 60)
[2020-06-26 04:32] LABS: ABG Base Excess 12 mEq/L (-2 to 3); ABG HCO3 38 mEq/L (21-27); ABG Oxygen Saturation 88 % (95-98); ABG PCO2 61 mmHg (35-45); ABG PO2 56 mmHg (85-104); ABG TCO2 40 mEq/L (20-26); Blood Gas VT 550 cc
[2020-06-26] MEDS: methylPREDNISolone 125 MG/2 ML VIAL IVP SCH ×2 (05:01→17:02)
[2020-06-26] MEDS: FentaNYL (PF) 2,500 MCG/50 ML IV.SOLN IVC SCH ×2 (06:55→16:10)
[2020-06-26] MEDS: Cefepime HCl 2,000 MG in Water for inj. (sterile) 20 ML IVP SCH ×2 (07:43→15:00)
[2020-06-26] MEDS: Budesonide/Formoterol 160/4.5 1 PUFF INH IH SCH ×2 (08:20→20:04)
[2020-06-26] MEDS: Docusate Oral Soln 100 MG/10 ML UDC PO SCH ×2 (08:21→20:05)
[2020-06-26] MEDS: Aspirin 81 MG TAB.CHEW PO SCH (08:21)
[2020-06-26] MEDS: Chlorhexidine Rinse 15 ML MOUTHWASH MM SCH ×2 (08:21→20:05)
[2020-06-26] MEDS: Insulin Human Regular 100 UNIT in 0.9 % Sodium Chloride 100 ML IVC SCH (09:18)
[2020-06-26] MEDS: Midazolam HCl 50 MG/100 ML IV.SOLN IVC SCH (10:18)
[2020-06-26] MEDS: Furosemide 40 MG/4 ML VIAL IVP SCH ×2 (11:03→20:05)
[2020-06-26] MEDS: Dexmedetomidine HCl 400 MCG/100 ML MLS IVC SCH (11:05)
[2020-06-27] MEDS: Cefepime HCl 2,000 MG in Water for inj. (sterile) 20 ML IVP SCH ×4 (00:14→23:41)
[2020-06-27] MEDS: Lacri-Lube 3.5 GM TUBE BOTH EYES SCH ×7 (00:15→23:41)
[2020-06-27] MEDS: Insulin Human Regular 100 UNIT in 0.9 % Sodium Chloride 100 ML IVC SCH ×2 (02:00→15:50)
[2020-06-27] MEDS: *HR* Heparin 5,000 UNIT/ML VIAL SQ SCH ×3 (03:30→20:10)
[2020-06-27 04:12] LABS: ABG Base Excess 14 mEq/L (-2 to 3); ABG HCO3 40 mEq/L (21-27); ABG Oxygen Saturation 90 % (95-98); ABG PCO2 61 mmHg (35-45); ABG PH 7.43 pH Units (7.32-7.45); ABG PO2 60 mmHg (85-104); ABG TCO2 42 mEq/L (20-26); Blood Gas VT 550 cc
[2020-06-27 04:14] LABS: Basophils # 0.1 K/mcL (0.0-0.2); Basophils % 0.4 %; Eosinophils % 0.1 %; Hematocrit 27.6 % (37.5-50.1); Hemoglobin 8.4 g/dL (12.9-16.9); Immature Granulocytes % 4.5 % (0-4); Lymphocytes # 1.1 K/mcL (0.6-4.6); Lymphocytes % 8.9 %; Mean Corpuscular HGB Conc 30.4 g/dL (31.6-35.5); Mean Corpuscular Hemoglobin 31.2 pg (28.0-33.3); Mean Corpuscular Volume 102.6 fL (83.0-100.0); Mean Platelet Volume 12.2 fL (9.4-12.4); Monocytes # 1.7 K/mcL (0.0-1.3); Neutrophils # 8.6 K/mcL (1.6-8.9); Nucleated Red Blood Cells 5.6 /100 WBC (0); Platelet Count 158 K/mcL (140-400); Red Blood Count 2.69 M/mcL (4.19-5.50); Red Cell Distribution Width 15.6 % (11.5-14.5); Segmented Neutrophils % 72.1 %
[2020-06-27 04:28] LABS: BUN/Creatinine Ratio 62 (6-26); Blood Urea Nitrogen 50 mg/dL (8-23); Calcium 9.3 mg/dL (8.6-10.3); Carbon Dioxide 37 mEq/L (23-29); Chloride 107 mEq/L (98-107); Glucose 144 mg/dL (70-105); Osmolality,Calculated 326 (280-300); Potassium 4.3 mEq/L (3.5-5.1); Sodium 150 mEq/L (136-145); eGFR For African Americans > 60 (> 60); eGFR For Non-African Americans > 60 (> 60)
[2020-06-27] MEDS: methylPREDNISolone 125 MG/2 ML VIAL IVP SCH ×2 (05:32→17:26)
[2020-06-27] MEDS: Budesonide/Formoterol 160/4.5 1 PUFF INH IH SCH ×2 (07:20→19:54)
[2020-06-27 07:52] LABS: ABG Base Excess -1 mEq/L (-2 to 3); ABG Chloride 103 mEq/L (98-107); ABG Glucose 280 mg/dL (60-95); ABG HCO3 25 mEq/L (21-27); ABG Ionized Calcium 1.25 mmol/L (1.15-1.35); ABG Oxygen Saturation 100 % (95-98); ABG PCO2 43 mmHg (35-45); ABG PH 7.37 pH Units (7.32-7.45); ABG PO2 218 mmHg (85-104); ABG TCO2 26 mEq/L (20-26)
[2020-06-27 07:53] LABS: ABG Base Excess -1 mEq/L (-2 to 3); ABG Chloride 100 mEq/L (98-107); ABG Glucose 230 mg/dL (60-95); ABG HCO3 26 mEq/L (21-27); ABG Ionized Calcium 1.13 mmol/L (1.15-1.35); ABG Oxygen Saturation 100 % (95-98); ABG PCO2 53 mmHg (35-45); ABG PO2 258 mmHg (85-104); ABG TCO2 28 mEq/L (20-26)
[2020-06-27 07:53] LABS: ABG Base Excess -2 mEq/L (-2 to 3); ABG Chloride 102 mEq/L (98-107); ABG Glucose 228 mg/dL (60-95); ABG HCO3 26 mEq/L (21-27); ABG Ionized Calcium 1.31 mmol/L (1.15-1.35); ABG Oxygen Saturation 93 % (95-98); ABG PCO2 69 mmHg (35-45); ABG PH 7.19 pH Units (7.32-7.45); ABG PO2 85 mmHg (85-104); ABG TCO2 29 mEq/L (20-26)
[2020-06-27 07:53] LABS: ABG Base Excess 1 mEq/L (-2 to 3); ABG Chloride 98 mEq/L (98-107); ABG Glucose 266 mg/dL (60-95); ABG HCO3 26 mEq/L (21-27); ABG Ionized Calcium 1.03 mmol/L (1.15-1.35); ABG Oxygen Saturation 100 % (95-98); ABG PCO2 46 mmHg (35-45); ABG PH 7.36 pH Units (7.32-7.45); ABG PO2 339 mmHg (85-104); ABG TCO2 28 mEq/L (20-26)
[2020-06-27 07:53] LABS: ABG Base Excess -1 mEq/L (-2 to 3); ABG Chloride 98 mEq/L (98-107); ABG Glucose 304 mg/dL (60-95); ABG HCO3 26 mEq/L (21-27); ABG Ionized Calcium 1.04 mmol/L (1.15-1.35); ABG Oxygen Saturation 100 % (95-98); ABG PCO2 51 mmHg (35-45); ABG PH 7.31 pH Units (7.32-7.45); ABG PO2 457 mmHg (85-104); ABG TCO2 27 mEq/L (20-26)
[2020-06-27 07:53] LABS: ABG Base Excess -4 mEq/L (-2 to 3); ABG Chloride 103 mEq/L (98-107); ABG Glucose 238 mg/dL (60-95); ABG HCO3 24 mEq/L (21-27); ABG Ionized Calcium 1.18 mmol/L (1.15-1.35); ABG Oxygen Saturation 100 % (95-98); ABG PCO2 59 mmHg (35-45); ABG PH 7.22 pH Units (7.32-7.45); ABG PO2 345 mmHg (85-104); ABG TCO2 26 mEq/L (20-26)
[2020-06-27] MEDS: Chlorhexidine Rinse 15 ML MOUTHWASH MM SCH ×2 (08:19→20:10)
[2020-06-27] MEDS: Aspirin 81 MG TAB.CHEW PO SCH (08:19)
[2020-06-27] MEDS: Docusate Oral Soln 100 MG/10 ML UDC PO SCH ×2 (08:19→20:11)
[2020-06-27] MEDS: FentaNYL (PF) 2,500 MCG/50 ML IV.SOLN IVC SCH (09:00)
[2020-06-27] MEDS: Dexmedetomidine HCl 400 MCG/100 ML MLS IVC SCH ×2 (10:39→20:11)
[2020-06-27] MEDS: Ipratropium/Albuterol Neb 3 ML IH SCH ×4 (11:39→23:45)
[2020-06-27] MEDS: Haloperidol Lactate 5 MG/ML VIAL IM SCH ×3 (12:07→23:42)
[2020-06-27 12:20] LABS: % Iron Saturation 17 % (20-55); Iron 39 mcg/dL (65-175); Transferrin 167 mg/dL (203-362)
[2020-06-27 12:46] LABS: Folate 5.4 ng/mL (3.0-16.0)
[2020-06-27 17:47] LABS: BUN/Creatinine Ratio 66 (6-26); Blood Urea Nitrogen 46 mg/dL (8-23); Calcium 9.2 mg/dL (8.6-10.3); Carbon Dioxide 40 mEq/L (23-29); Chloride 107 mEq/L (98-107); Glucose 125 mg/dL (70-105); Osmolality,Calculated 323 (280-300); Potassium 4.2 mEq/L (3.5-5.1); Sodium 150 mEq/L (136-145); eGFR For African Americans > 60 (> 60); eGFR For Non-African Americans > 60 (> 60)
[2020-06-27] MEDS ORDERED: D5% in Water 1,000 ML IVC PRN (18:52)
[2020-06-27] MEDS ORDERED: Dextrose Gel 15 GM/37.5 ML TUBE PO PRN ×2 (18:52)
[2020-06-27] MEDS: Insulin LISPRO 300 UNITS/3 ML VIAL SQ SCH (23:41)
[2020-06-28] MEDS: FentaNYL (PF) 2,500 MCG/50 ML IV.SOLN IVC SCH ×3 (00:09→23:40)
[2020-06-28] MEDS: *HR* Heparin 5,000 UNIT/ML VIAL SQ SCH ×3 (03:05→18:13)
[2020-06-28] MEDS: Lacri-Lube 3.5 GM TUBE BOTH EYES SCH ×6 (03:05→23:33)
[2020-06-28 03:23] LABS: Hematocrit 31.1 % (37.5-50.1); Hemoglobin 9.2 g/dL (12.9-16.9); Mean Corpuscular HGB Conc 29.6 g/dL (31.6-35.5); Mean Corpuscular Volume 104.7 fL (83.0-100.0); Mean Platelet Volume 12.6 fL (9.4-12.4); Nucleated Red Blood Cells 3.6 /100 WBC (0); Platelet Count 177 K/mcL (140-400); Red Blood Count 2.97 M/mcL (4.19-5.50); Red Cell Distribution Width 15.6 % (11.5-14.5); White Blood Count 12.6 K/mcL (4.3-11.1)
[2020-06-28] MEDS: Ipratropium/Albuterol Neb 3 ML IH SCH ×7 (03:39→23:19)
[2020-06-28 03:42] LABS: BUN/Creatinine Ratio 59 (6-26); Blood Urea Nitrogen 45 mg/dL (8-23); Calcium 9.4 mg/dL (8.6-10.3); Carbon Dioxide 36 mEq/L (23-29); Chloride 106 mEq/L (98-107); Glucose 246 mg/dL (70-105); Magnesium 2.2 mg/dL (1.6-2.6); Osmolality,Calculated 326 (280-300); Phosphorous 3.7 mg/dL (2.7-4.5); Potassium 4.5 mEq/L (3.5-5.1); Sodium 148 mEq/L (136-145); eGFR For African Americans > 60 (> 60); eGFR For Non-African Americans > 60 (> 60)
[2020-06-28 03:49] LABS: Eosinophils # 0.4 K/mcL (0.0-0.6); Lymphocytes # 1.1 K/mcL (0.6-4.6); Monocytes # 1.8 K/mcL (0.0-1.3); Neutrophils # 8.6 K/mcL (1.6-8.9)
[2020-06-28 03:50] LABS: Anisocytosis 1+ (Not Present); Platelet Estimate Normal (Normal); Polychromasia 1+ (Not Present)
[2020-06-28 03:58] LABS: Toxic Granulation Present (Not Present)
[2020-06-28 04:48] LABS: ABG Base Excess 14 mEq/L (-2 to 3); ABG HCO3 42 mEq/L (21-27); ABG Oxygen Saturation 96 % (95-98); ABG PCO2 72 mmHg (35-45); ABG PH 7.37 pH Units (7.32-7.45); ABG PO2 89 mmHg (85-104); ABG TCO2 44 mEq/L (20-26); Blood Gas Modality AF; Blood Gas VT 550 cc
[2020-06-28] MEDS: methylPREDNISolone 125 MG/2 ML VIAL IVP SCH ×2 (05:19→18:12)
[2020-06-28] MEDS: Insulin LISPRO 300 UNITS/3 ML VIAL SQ SCH ×4 (05:20→23:34)
[2020-06-28] MEDS: Haloperidol Lactate 5 MG/ML VIAL IM SCH ×4 (05:20→23:29)
[2020-06-28] MEDS ORDERED: Furosemide 40 MG/4 ML VIAL IVP ONE (07:35)
[2020-06-28] MEDS: Budesonide/Formoterol 160/4.5 1 PUFF INH IH SCH ×2 (07:58→19:19)
[2020-06-28] MEDS: Docusate Oral Soln 100 MG/10 ML UDC PO SCH (08:17)
[2020-06-28] MEDS: Chlorhexidine Rinse 15 ML MOUTHWASH MM SCH ×2 (08:17→20:39)
[2020-06-28] MEDS: Aspirin 81 MG TAB.CHEW PO SCH (08:17)
[2020-06-28] MEDS: Glycerin RECTAL Suppository RC SCH (08:17)
[2020-06-28] MEDS: Cefepime HCl 2,000 MG in Water for inj. (sterile) 20 ML IVP SCH (08:18)
[2020-06-28] MEDS ORDERED: Perflutren Lipid Microsphere 1.3 ML in 0.9 % Sodium Chloride 8.7 ML IVP PRN (10:07)
[2020-06-28] MEDS: Acetaminophen 325 MG TABLET PO PRN (11:57)
[2020-06-28] MEDS ORDERED: Insulin DETEMIR 100 UNIT/ML X5UNITS SQ ONE (12:30)
[2020-06-28] MEDS: Vancomycin 2,000 MG/520 ML IV.SOLN IVPB SCH (13:27)
[2020-06-28 13:44] LABS: INR 1.2; Prothrombin Time 13.8 Seconds (9.4-12.1)
[2020-06-28 15:51] LABS: Influenza A PCR Body Fluid NOT DETECTED; Influenza B PCR Body Fluid NOT DETECTED
[2020-06-28 16:13] LABS: Chol/HDL Ratio 5.5 (0-4.9)
[2020-06-28 16:16] LABS: BUN/Creatinine Ratio 54 (6-26); Blood Urea Nitrogen 49 mg/dL (8-23); Calcium 9.2 mg/dL (8.6-10.3); Carbon Dioxide 38 mEq/L (23-29); Chloride 105 mEq/L (98-107); Glucose 269 mg/dL (70-105); Magnesium 2.2 mg/dL (1.6-2.6); Osmolality,Calculated 326 (280-300); Potassium 4.8 mEq/L (3.5-5.1); Sodium 147 mEq/L (136-145); eGFR For African Americans > 60 (> 60); eGFR For Non-African Americans > 60 (> 60)
[2020-06-28] MEDS: Dexmedetomidine HCl 400 MCG/100 ML MLS IVC SCH (16:55)
[2020-06-28] MEDS: Piperacillin/Tazobactam 3.375 GM in 0.9 % Sodium Chloride Mini Bag 100 ML IVPB SCH ×2 (16:55→23:30)
[2020-06-28 17:30] LABS: Bilirubin,Urine Negative (Negative); Blood,Urine Trace (Negative); Clarity,Urine Clear (Clear); Color,Urine Light-Yellow (Yellow); Glucose,Urine (UA) 30 mg/dL (Normal); Hyaline Casts,Urine Moderate per lpf (None Seen); Ketones,Urine Negative (Negative); Leukocyte Esterase,Urine Negative (Negative); Mucus,Urine Few per lpf (None-Few); Nitrite,Urine Negative (Negative); PH,Urine 5.5 pH Units (5.0-8.0); Protein,Urine Trace mg/dL (Neg-Trace); RBC,Urine 30-50 per hpf (0-3); Specific Gravity,Urine 1.023 (1.010-1.025); Squamous Epithelial Cell,Urine Few per hpf (None-Few); Urobilinogen,Urine Normal (Normal); WBC,Urine 0-3 per hpf (0-3)
[2020-06-28] MEDS: Docusate Oral Soln 100 MG/10 ML UDC GTUBE SCH (20:39)
[2020-06-29] MEDS: Vancomycin 2,000 MG/520 ML IV.SOLN IVPB SCH (01:42)
[2020-06-29] MEDS: Ipratropium/Albuterol Neb 3 ML IH SCH ×6 (03:07→23:30)
[2020-06-29] MEDS: *HR* Heparin 5,000 UNIT/ML VIAL SQ SCH ×3 (03:13→20:29)
[2020-06-29] MEDS: Lacri-Lube 3.5 GM TUBE BOTH EYES SCH ×6 (03:19→23:33)
[2020-06-29 03:42] LABS: Basophils % 0.2 %; Eosinophils % 0.4 %; Hemoglobin 7.8 g/dL (12.9-16.9); Immature Granulocytes % 4.4 % (0-4); Lymphocytes % 9.5 %; Mean Corpuscular Hemoglobin 31.2 pg (28.0-33.3); Mean Platelet Volume 12.7 fL (9.4-12.4); Monocytes # 1.3 K/mcL (0.0-1.3); Monocytes % 12.5 %; Neutrophils # 7.5 K/mcL (1.6-8.9); Nucleated Red Blood Cells 2.4 /100 WBC (0); Platelet Count 166 K/mcL (140-400); Red Cell Distribution Width 15.6 % (11.5-14.5); White Blood Count 10.3 K/mcL (4.3-11.1)
[2020-06-29 03:59] LABS: BUN/Creatinine Ratio 59 (6-26); Blood Urea Nitrogen 48 mg/dL (8-23); Carbon Dioxide 38 mEq/L (23-29); Chloride 106 mEq/L (98-107); Glucose 220 mg/dL (70-105); Osmolality,Calculated 323 (280-300); Potassium 4.6 mEq/L (3.5-5.1); Sodium 147 mEq/L (136-145); eGFR For African Americans > 60 (> 60); eGFR For Non-African Americans > 60 (> 60)
[2020-06-29 04:45] LABS: Magnesium 2.4 mg/dL (1.6-2.6); Phosphorous 3.4 mg/dL (2.7-4.5)
[2020-06-29 04:53] LABS: ABG Base Excess 13 mEq/L (-2 to 3); ABG HCO3 40 mEq/L (21-27); ABG Oxygen Saturation 94 % (95-98); ABG PCO2 68 mmHg (35-45); ABG PH 7.37 pH Units (7.32-7.45); ABG PO2 77 mmHg (85-104); ABG TCO2 42 mEq/L (20-26); Blood Gas Modality ASSIST CONTROL; Blood Gas VT 550 cc
[2020-06-29] MEDS: methylPREDNISolone 125 MG/2 ML VIAL IVP SCH ×2 (06:02→17:53)
[2020-06-29] MEDS: Haloperidol Lactate 5 MG/ML VIAL IM SCH ×4 (06:02→23:32)
[2020-06-29] MEDS: Dexmedetomidine HCl 400 MCG/100 ML MLS IVC SCH ×5 (06:03→22:20)
[2020-06-29] MEDS: Insulin LISPRO 300 UNITS/3 ML VIAL SQ SCH ×4 (06:23→23:33)
[2020-06-29] MEDS: Budesonide/Formoterol 160/4.5 1 PUFF INH IH SCH ×2 (07:11→19:30)
[2020-06-29] MEDS: Chlorhexidine Rinse 15 ML MOUTHWASH MM SCH ×2 (08:30→20:11)
[2020-06-29] MEDS: Piperacillin/Tazobactam 3.375 GM in 0.9 % Sodium Chloride Mini Bag 100 ML IVPB SCH ×3 (08:30→23:32)
[2020-06-29] MEDS: Docusate Oral Soln 100 MG/10 ML UDC GTUBE SCH ×2 (09:11→20:11)
[2020-06-29] MEDS: Aspirin 81 MG TAB.CHEW PO SCH (09:11)
[2020-06-29] MEDS: Glycerin RECTAL Suppository RC SCH (09:11)
[2020-06-29] MEDS: Pantoprazole 40 MG VIAL IVP SCH (09:11)
[2020-06-29] MEDS: Insulin DETEMIR 100 UNIT/ML X5UNITS SQ SCH (09:16)
[2020-06-29 11:22] LABS: RSV PCR Body Fluid NOT DETECTED; RVP Body Fluid Source NOT PROVIDED
[2020-06-29] MEDS: Vancomycin 1,500 MG/265 ML IV.SOLN IVPB SCH (12:55)
[2020-06-29] MEDS: FentaNYL (PF) 2,500 MCG/50 ML IV.SOLN IVC SCH (13:14)
[2020-06-29] MEDS ORDERED: Furosemide 40 MG/4 ML VIAL IVP ONE (17:14)
[2020-06-29] MEDS ORDERED: *HR* Metoprolol 5 MG/5 ML VIAL IVP ONE ×2 (18:21→18:22)
[2020-06-29] MEDS ORDERED: Amiodarone Premix 150 MG/100 ML BAG IVPB ONE ×2 (18:35→18:39)
[2020-06-29] MEDS ORDERED: Amiodarone Premix 360 MG/200 ML BAG IVC ONE (18:39)
[2020-06-29] MEDS: Norepinephrine 4 MG/254 ML IV.SOLN IVC SCH (20:23)
[2020-06-30] MEDS: Dexmedetomidine HCl 400 MCG/100 ML MLS IVC SCH ×9 (00:06→22:44)
[2020-06-30] MEDS: Vancomycin 1,500 MG/265 ML IV.SOLN IVPB SCH (00:13)
[2020-06-30] MEDS: Amiodarone Premix 360 MG/200 ML BAG IVC SCH ×3 (01:16→23:38)
[2020-06-30] MEDS: FentaNYL (PF) 2,500 MCG/50 ML IV.SOLN IVC SCH ×2 (02:09→13:38)
[2020-06-30] MEDS: Ipratropium/Albuterol Neb 3 ML IH SCH ×6 (03:16→23:52)
[2020-06-30] MEDS: *HR* Heparin 5,000 UNIT/ML VIAL SQ SCH ×3 (03:17→19:48)
[2020-06-30] MEDS: Lacri-Lube 3.5 GM TUBE BOTH EYES SCH ×6 (03:17→23:22)
[2020-06-30 03:30] LABS: Basophils % 0.2 %; Eosinophils % 0.2 %; Hematocrit 25.6 % (37.5-50.1); Hemoglobin 7.6 g/dL (12.9-16.9); Immature Granulocytes % 2.4 % (0-4); Lymphocytes % 9.8 %; Mean Corpuscular HGB Conc 29.7 g/dL (31.6-35.5); Mean Corpuscular Hemoglobin 31.3 pg (28.0-33.3); Mean Corpuscular Volume 105.3 fL (83.0-100.0); Mean Platelet Volume 12.6 fL (9.4-12.4); Monocytes # 1.2 K/mcL (0.0-1.3); Nucleated Red Blood Cells 2.4 /100 WBC (0); Platelet Count 172 K/mcL (140-400); Red Blood Count 2.43 M/mcL (4.19-5.50); Red Cell Distribution Width 15.5 % (11.5-14.5); Segmented Neutrophils % 76.4 %; White Blood Count 10.4 K/mcL (4.3-11.1)
[2020-06-30 03:44] LABS: BUN/Creatinine Ratio 49 (6-26); Blood Urea Nitrogen 41 mg/dL (8-23); Carbon Dioxide 38 mEq/L (23-29); Chloride 108 mEq/L (98-107); Glucose 269 mg/dL (70-105); Magnesium 2.1 mg/dL (1.6-2.6); Osmolality,Calculated 328 (280-300); Potassium 3.7 mEq/L (3.5-5.1); Sodium 149 mEq/L (136-145); eGFR For African Americans > 60 (> 60); eGFR For Non-African Americans > 60 (> 60)
[2020-06-30 04:45] LABS: ABG Base Excess 11 mEq/L (-2 to 3); ABG HCO3 37 mEq/L (21-27); ABG Oxygen Saturation 95 % (95-98); ABG PCO2 58 mmHg (35-45); ABG PH 7.41 pH Units (7.32-7.45); ABG PO2 79 mmHg (85-104); ABG TCO2 39 mEq/L (20-26); Blood Gas Modality ASSIST CONTROL; Blood Gas VT 550 cc
[2020-06-30] MEDS: methylPREDNISolone 125 MG/2 ML VIAL IVP SCH ×2 (05:07→17:02)
[2020-06-30] MEDS: Haloperidol Lactate 5 MG/ML VIAL IM SCH ×4 (05:07→23:21)
[2020-06-30] MEDS: Insulin LISPRO 300 UNITS/3 ML VIAL SQ SCH ×4 (05:22→20:50)
[2020-06-30] MEDS: Budesonide/Formoterol 160/4.5 1 PUFF INH IH SCH ×2 (07:29→20:16)
[2020-06-30] MEDS ORDERED: *HR* LORazepam 2 MG/ML VIAL ONE (09:05)
[2020-06-30] MEDS: *HR* LORazepam 2 MG/ML VIAL IVP PRN ×4 (09:10→19:33)
[2020-06-30] MEDS: Piperacillin/Tazobactam 3.375 GM in 0.9 % Sodium Chloride Mini Bag 100 ML IVPB SCH ×3 (09:20→23:21)
[2020-06-30] MEDS: Aspirin 81 MG TAB.CHEW PO SCH (09:21)
[2020-06-30] MEDS: Chlorhexidine Rinse 15 ML MOUTHWASH MM SCH ×2 (09:21→20:48)
[2020-06-30] MEDS: Pantoprazole 40 MG VIAL IVP SCH (09:21)
[2020-06-30] MEDS: Docusate Oral Soln 100 MG/10 ML UDC GTUBE SCH ×2 (09:21→20:48)
[2020-06-30] MEDS: Glycerin RECTAL Suppository RC SCH (09:21)
[2020-06-30] MEDS: Insulin DETEMIR 100 UNIT/ML X5UNITS SQ SCH ×2 (09:34→20:50)
[2020-06-30] MEDS: Lactulose Oral Soln 20 GM/30 ML UDC GTUBE SCH ×2 (09:39→20:48)
[2020-06-30 11:36] LABS: VBG Base Excess 13 mEq/L; VBG Chloride 106 mEq/L (98-107); VBG Glucose 291 mg/dl (65-95); VBG HCO3 38 mEq/L (21-27); VBG Ionized Calcium 1.24 mmol/L (1.15-1.35); VBG Oxygen Saturation 97 %; VBG PCO2 57 mmHg (41-51); VBG PH 7.43 pH Units (7.32-7.42); VBG PO2 94 mmHg (25-50); VBG Total CO2 40 mEq/L
[2020-06-30] MEDS ORDERED: Milk and Molasses Enema 200 ML RC ONE (12:36)
[2020-06-30] MEDS ORDERED: 0.9 % Sodium Chloride 250 ML ONE (13:36)
[2020-06-30] MEDS ORDERED: Aminoglycoside Consult 1 EACH MC ONE (17:18)
[2020-06-30 18:37] LABS: HSV Source BAL LLL
[2020-06-30] MEDS: Norepinephrine 4 MG/254 ML IV.SOLN IVC SCH (20:28)
[2020-07-01] MEDS: FentaNYL (PF) 2,500 MCG/50 ML IV.SOLN IVC SCH ×2 (00:27→18:16)
[2020-07-01] MEDS: *HR* LORazepam 2 MG/ML VIAL IVP PRN ×7 (00:27→20:06)
[2020-07-01] MEDS: Dexmedetomidine HCl 400 MCG/100 ML MLS IVC SCH ×9 (00:28→23:14)
[2020-07-01] MEDS: Ipratropium/Albuterol Neb 3 ML IH SCH ×5 (03:26→19:58)
[2020-07-01] MEDS: *HR* Heparin 5,000 UNIT/ML VIAL SQ SCH ×3 (03:27→18:45)
[2020-07-01] MEDS: Lacri-Lube 3.5 GM TUBE BOTH EYES SCH ×5 (03:28→20:02)
[2020-07-01] MEDS: Insulin LISPRO 300 UNITS/3 ML VIAL SQ SCH ×6 (03:28→21:09)
[2020-07-01 04:12] LABS: Basophils % 0.2 %; Mean Corpuscular Volume 101.7 fL (83.0-100.0)
[2020-07-01 04:14] LABS: Eosinophils % 0.2 %; Hematocrit 29.3 % (37.5-50.1); Hemoglobin 8.6 g/dL (12.9-16.9); Immature Granulocytes % 1.6 % (0-4); Lymphocytes # 1.2 K/mcL (0.6-4.6); Mean Corpuscular HGB Conc 29.4 g/dL (31.6-35.5); Mean Corpuscular Hemoglobin 29.9 pg (28.0-33.3); Mean Platelet Volume 13.2 fL (9.4-12.4); Monocytes % 8.2 %; Neutrophils # 9.8 K/mcL (1.6-8.9); Nucleated Red Blood Cells 1.5 /100 WBC (0); Platelet Count 169 K/mcL (140-400); Red Blood Count 2.88 M/mcL (4.19-5.50); Red Cell Distribution Width 16.4 % (11.5-14.5); Segmented Neutrophils % 79.8 %; White Blood Count 12.3 K/mcL (4.3-11.1)
[2020-07-01 04:18] LABS: ABG Base Excess 12 mEq/L (-2 to 3); ABG HCO3 39 mEq/L (21-27); ABG Oxygen Saturation 95 % (95-98); ABG PCO2 65 mmHg (35-45); ABG PH 7.39 pH Units (7.32-7.45); ABG PO2 81 mmHg (85-104); ABG TCO2 41 mEq/L (20-26); Blood Gas VT 550 cc
[2020-07-01 04:33] LABS: BUN/Creatinine Ratio 52 (6-26); Blood Urea Nitrogen 40 mg/dL (8-23); Calcium 9.1 mg/dL (8.6-10.3); Carbon Dioxide 38 mEq/L (23-29); Chloride 107 mEq/L (98-107); Glucose 283 mg/dL (70-105); Osmolality,Calculated 328 (280-300); Potassium 3.8 mEq/L (3.5-5.1); Sodium 149 mEq/L (136-145); eGFR For African Americans > 60 (> 60); eGFR For Non-African Americans > 60 (> 60)
[2020-07-01] MEDS: methylPREDNISolone 125 MG/2 ML VIAL IVP SCH (05:09)
[2020-07-01] MEDS: Haloperidol Lactate 5 MG/ML VIAL IM SCH (05:09)
[2020-07-01 05:16] LABS: Macrocytosis Present (Not Present); Platelet Estimate Normal (Normal)
[2020-07-01] MEDS: Budesonide/Formoterol 160/4.5 1 PUFF INH IH SCH ×2 (07:25→19:59)
[2020-07-01] MEDS: Piperacillin/Tazobactam 3.375 GM in 0.9 % Sodium Chloride Mini Bag 100 ML IVPB SCH ×2 (08:24→16:18)
[2020-07-01] MEDS: Aspirin 81 MG TAB.CHEW PO SCH (08:26)
[2020-07-01] MEDS: Pantoprazole 40 MG VIAL IVP SCH (08:26)
[2020-07-01] MEDS: Chlorhexidine Rinse 15 ML MOUTHWASH MM SCH ×2 (08:26→20:00)
[2020-07-01] MEDS: Docusate Oral Soln 100 MG/10 ML UDC GTUBE SCH ×2 (08:27→20:01)
[2020-07-01] MEDS: Lactulose Oral Soln 20 GM/30 ML UDC GTUBE SCH ×2 (08:28→20:00)
[2020-07-01] MEDS ORDERED: *HR* Amiodarone 200 MG TABLET PO SCH (09:00)
[2020-07-01] MEDS: Insulin DETEMIR 100 UNIT/ML X5UNITS SQ SCH ×2 (09:07→20:01)
[2020-07-01] MEDS: D5% in Water 1,000 ML IVC SCH ×2 (09:07→22:25)
[2020-07-01] MEDS ORDERED: *HR* LORazepam 2 MG/ML VIAL IVP ONE (09:43)
[2020-07-01] MEDS: Norepinephrine 4 MG/254 ML IV.SOLN IVC SCH (11:33)
[2020-07-01 13:52] LABS: BUN/Creatinine Ratio 49 (6-26); Blood Urea Nitrogen 35 mg/dL (8-23); Calcium 8.5 mg/dL (8.6-10.3); Carbon Dioxide 39 mEq/L (23-29); Chloride 107 mEq/L (98-107); Glucose 266 mg/dL (70-105); Osmolality,Calculated 321 (280-300); Potassium 3.9 mEq/L (3.5-5.1); Sodium 147 mEq/L (136-145); eGFR For African Americans > 60 (> 60); eGFR For Non-African Americans > 60 (> 60)
[2020-07-01 20:21] LABS: BUN/Creatinine Ratio 44 (6-26); Blood Urea Nitrogen 32 mg/dL (8-23); Calcium 8.7 mg/dL (8.6-10.3); Carbon Dioxide 40 mEq/L (23-29); Chloride 107 mEq/L (98-107); Glucose 226 mg/dL (70-105); Osmolality,Calculated 320 (280-300); Potassium 3.3 mEq/L (3.5-5.1); Sodium 148 mEq/L (136-145); eGFR For African Americans > 60 (> 60); eGFR For Non-African Americans > 60 (> 60)
[2020-07-01 23:58] LABS: BUN/Creatinine Ratio 46 (6-26); Blood Urea Nitrogen 31 mg/dL (8-23); Calcium 8.9 mg/dL (8.6-10.3); Carbon Dioxide 38 mEq/L (23-29); Chloride 108 mEq/L (98-107); Glucose 126 mg/dL (70-105); Osmolality,Calculated 316 (280-300); Potassium 3.4 mEq/L (3.5-5.1); Sodium 149 mEq/L (136-145); eGFR For African Americans > 60 (> 60); eGFR For Non-African Americans > 60 (> 60)
[2020-07-02] MEDS: Ipratropium/Albuterol Neb 3 ML IH SCH ×2 (00:06→03:09)
[2020-07-02] MEDS: *HR* LORazepam 2 MG/ML VIAL IVP PRN ×4 (00:14→12:55)
[2020-07-02] MEDS: Insulin LISPRO 300 UNITS/3 ML VIAL SQ SCH ×6 (00:19→20:31)
[2020-07-02] MEDS: Lacri-Lube 3.5 GM TUBE BOTH EYES SCH ×6 (00:19→20:31)
[2020-07-02] MEDS: Dexmedetomidine HCl 400 MCG/100 ML MLS IVC SCH ×9 (02:05→22:58)
[2020-07-02] MEDS: *HR* Heparin 5,000 UNIT/ML VIAL SQ SCH ×3 (02:50→19:48)
[2020-07-02 04:10] LABS: Basophils % 0.2 %; Eosinophils # 0.1 K/mcL (0.0-0.6); Eosinophils % 1.1 %; Hematocrit 27.5 % (37.5-50.1); Hemoglobin 8.3 g/dL (12.9-16.9); Immature Granulocytes % 1.4 % (0-4); Lymphocytes # 1.5 K/mcL (0.6-4.6); Lymphocytes % 12.5 %; Mean Corpuscular HGB Conc 30.2 g/dL (31.6-35.5); Mean Corpuscular Hemoglobin 30.9 pg (28.0-33.3); Mean Corpuscular Volume 102.2 fL (83.0-100.0); Mean Platelet Volume 12.9 fL (9.4-12.4); Monocytes # 0.7 K/mcL (0.0-1.3); Monocytes % 5.9 %; Neutrophils # 9.3 K/mcL (1.6-8.9); Nucleated Red Blood Cells 2.4 /100 WBC (0); Platelet Count 164 K/mcL (140-400); Red Blood Count 2.69 M/mcL (4.19-5.50); Red Cell Distribution Width 16.1 % (11.5-14.5); Segmented Neutrophils % 78.9 %; White Blood Count 11.7 K/mcL (4.3-11.1)
[2020-07-02 04:32] LABS: BUN/Creatinine Ratio 46 (6-26); Blood Urea Nitrogen 29 mg/dL (8-23); Calcium 8.9 mg/dL (8.6-10.3); Carbon Dioxide 38 mEq/L (23-29); Chloride 108 mEq/L (98-107); Glucose 48 mg/dL (70-105); Osmolality,Calculated 311 (280-300); Potassium 3.1 mEq/L (3.5-5.1); Sodium 149 mEq/L (136-145); eGFR For African Americans > 60 (> 60); eGFR For Non-African Americans > 60 (> 60)
[2020-07-02 04:42] LABS: ABG Base Excess 13 mEq/L (-2 to 3); ABG HCO3 39 mEq/L (21-27); ABG Oxygen Saturation 94 % (95-98); ABG PCO2 60 mmHg (35-45); ABG PH 7.42 pH Units (7.32-7.45); ABG PO2 71 mmHg (85-104); ABG TCO2 41 mEq/L (20-26); Blood Gas Modality AF; Blood Gas VT 550 cc
[2020-07-02] MEDS: *HR* Dextrose 50 % in Water (Vial) 50 ML VIAL IVP PRN (05:19)
[2020-07-02] MEDS ORDERED: Amiodarone Premix 150 MG/100 ML BAG IVPB ONE (05:38)
[2020-07-02] MEDS ORDERED: Amiodarone Premix 360 MG/200 ML BAG IVC ONE (05:38)
[2020-07-02] MEDS ORDERED: 0.9 % Sodium Chloride 1,000 ML ONE (05:57)
[2020-07-02] MEDS ORDERED: Ringers Solution, Lactated 1,000 ML ONE (06:05)
[2020-07-02] MEDS: Budesonide/Formoterol 160/4.5 1 PUFF INH IH SCH ×2 (07:40→20:07)
[2020-07-02] MEDS: Levalbuterol Neb 1.25 MG/3 ML IH SCH ×5 (07:40→23:37)
[2020-07-02] MEDS ORDERED: D5% in Water 1,000 ML IVC SCH (09:00)
[2020-07-02] MEDS ORDERED: predniSONE 20 MG TABLET PO SCH (09:00)
[2020-07-02] MEDS ORDERED: *HR* Amiodarone 200 MG TABLET PO SCH (09:00)
[2020-07-02] MEDS: FentaNYL (PF) 2,500 MCG/50 ML IV.SOLN IVC SCH (09:35)
[2020-07-02] MEDS ORDERED: Potassium Effervescent 25 MEQ TABLET.EFF GTUBE ONE (10:34)
[2020-07-02] MEDS: Docusate Oral Soln 100 MG/10 ML UDC GTUBE SCH ×2 (10:40→20:30)
[2020-07-02] MEDS: Chlorhexidine Rinse 15 ML MOUTHWASH MM SCH ×2 (10:40→20:32)
[2020-07-02] MEDS: Pantoprazole 40 MG VIAL IVP SCH (10:40)
[2020-07-02] MEDS: Aspirin 81 MG TAB.CHEW PO SCH (10:40)
[2020-07-02] MEDS: Lactulose Oral Soln 20 GM/30 ML UDC GTUBE SCH ×2 (10:40→20:30)
[2020-07-02] MEDS: Insulin DETEMIR 100 UNIT/ML X5UNITS SQ SCH ×2 (10:44→20:30)
[2020-07-02] MEDS: Amiodarone Premix 360 MG/200 ML BAG IVC SCH (11:39)
[2020-07-02] MEDS: Acetaminophen 325 MG TABLET PO PRN (12:57)
[2020-07-02] MEDS ORDERED: *HR* LORazepam 2 MG/ML VIAL IVP ONE (16:00)
[2020-07-02 16:28] LABS: BUN/Creatinine Ratio 38 (6-26); Blood Urea Nitrogen 30 mg/dL (8-23); Carbon Dioxide 38 mEq/L (23-29); Chloride 102 mEq/L (98-107); Glucose 196 mg/dL (70-105); Osmolality,Calculated 308 (280-300); Potassium 3.8 mEq/L (3.5-5.1); Sodium 143 mEq/L (136-145); eGFR For African Americans > 60 (> 60); eGFR For Non-African Americans > 60 (> 60)
[2020-07-02] MEDS ORDERED: Furosemide 40 MG/4 ML VIAL IVP ONE (18:15)
[2020-07-02] MEDS ORDERED: Furosemide 40 MG/4 ML VIAL ONE (18:16)
[2020-07-02] MEDS: Norepinephrine 4 MG/254 ML IV.SOLN IVC SCH (19:41)
[2020-07-03] MEDS: Amiodarone Premix 360 MG/200 ML BAG IVC SCH ×3 (00:03→23:14)
[2020-07-03] MEDS: FentaNYL (PF) 2,500 MCG/50 ML IV.SOLN IVC SCH ×2 (00:05→07:45)
[2020-07-03] MEDS: Insulin LISPRO 300 UNITS/3 ML VIAL SQ SCH ×6 (00:13→19:43)
[2020-07-03] MEDS: Lacri-Lube 3.5 GM TUBE BOTH EYES SCH ×3 (00:13→08:32)
[2020-07-03] MEDS: *HR* LORazepam 2 MG/ML VIAL IVP PRN ×4 (00:55→21:42)
[2020-07-03] MEDS: Dexmedetomidine HCl 400 MCG/100 ML MLS IVC SCH ×8 (01:30→23:02)
[2020-07-03] MEDS: *HR* Heparin 5,000 UNIT/ML VIAL SQ SCH ×3 (02:58→19:43)
[2020-07-03] MEDS: Levalbuterol Neb 1.25 MG/3 ML IH SCH ×6 (03:19→23:15)
[2020-07-03] MEDS: Norepinephrine 4 MG/254 ML IV.SOLN IVC SCH (03:30)
[2020-07-03 03:54] LABS: Basophils % 0.2 %; Mean Corpuscular Hemoglobin 30.2 pg (28.0-33.3)
[2020-07-03 03:56] LABS: Eosinophils # 0.3 K/mcL (0.0-0.6); Eosinophils % 1.3 %; Hematocrit 31.7 % (37.5-50.1); Hemoglobin 9.4 g/dL (12.9-16.9); Immature Granulocytes % 1.2 % (0-4); Immature Platelets 21.2 % (1.1-6.1); Lymphocytes # 2.3 K/mcL (0.6-4.6); Lymphocytes % 10.7 %; Mean Corpuscular HGB Conc 29.7 g/dL (31.6-35.5); Mean Corpuscular Volume 101.9 fL (83.0-100.0); Mean Platelet Volume 13.6 fL (9.4-12.4); Monocytes # 1.5 K/mcL (0.0-1.3); Monocytes % 7.2 %; Neutrophils # 16.8 K/mcL (1.6-8.9); Nucleated Red Blood Cells 1.1 /100 WBC (0); Platelet Count 177 K/mcL (140-400); Red Blood Count 3.11 M/mcL (4.19-5.50); Segmented Neutrophils % 79.4 %; White Blood Count 21.1 K/mcL (4.3-11.1)
[2020-07-03 04:16] LABS: BUN/Creatinine Ratio 40 (6-26); Blood Urea Nitrogen 32 mg/dL (8-23); Carbon Dioxide 37 mEq/L (23-29); Chloride 102 mEq/L (98-107); Glucose 165 mg/dL (70-105); Osmolality,Calculated 307 (280-300); Potassium 3.9 mEq/L (3.5-5.1); Sodium 143 mEq/L (136-145); eGFR For African Americans > 60 (> 60); eGFR For Non-African Americans > 60 (> 60)
[2020-07-03] MEDS ORDERED: *HR* Midazolam HCl 5 MG/5 ML VIAL IVP ONE ×2 (04:46→05:07)
[2020-07-03 04:48] LABS: ABG Base Excess 8 mEq/L (-2 to 3); ABG HCO3 35 mEq/L (21-27); ABG Oxygen Saturation 92 % (95-98); ABG PCO2 57 mmHg (35-45); ABG PH 7.39 pH Units (7.32-7.45); ABG PO2 68 mmHg (85-104); ABG TCO2 36 mEq/L (20-26); Blood Gas Modality ASSIST CONTROL; Blood Gas VT 550 cc
[2020-07-03] MEDS ORDERED: *HR* Midazolam HCl 2 MG/2 ML VIAL IVP PRN (05:07)
[2020-07-03 07:00] LABS: Phosphorous 4.5 mg/dL (2.7-4.5)
[2020-07-03 07:28] LABS: VBG Ionized Calcium 1.26 mmol/L (1.15-1.35)
[2020-07-03] MEDS: Budesonide/Formoterol 160/4.5 1 PUFF INH IH SCH ×2 (07:41→19:28)
[2020-07-03] MEDS: Lactulose Oral Soln 20 GM/30 ML UDC GTUBE SCH ×2 (08:30→19:52)
[2020-07-03] MEDS: Chlorhexidine Rinse 15 ML MOUTHWASH MM SCH ×2 (08:30→21:02)
[2020-07-03] MEDS: Aspirin 81 MG TAB.CHEW PO SCH (08:30)
[2020-07-03] MEDS: Pantoprazole 40 MG VIAL IVP SCH (08:31)
[2020-07-03] MEDS: Docusate Oral Soln 100 MG/10 ML UDC GTUBE SCH ×2 (08:31→19:52)
[2020-07-03] MEDS: Insulin DETEMIR 100 UNIT/ML X5UNITS SQ SCH ×2 (08:44→19:52)
[2020-07-03] MEDS: Piperacillin/Tazobactam 3.375 GM in 0.9 % Sodium Chloride Mini Bag 100 ML IVPB SCH ×2 (08:45→17:00)
[2020-07-03] MEDS ORDERED: Vancomycin 2,000 MG/520 ML IV.SOLN IVPB ONE ×2 (09:00→21:00)
[2020-07-03 09:53] LABS: Bilirubin,Urine Negative (Negative); Blood,Urine Moderate (Negative); Clarity,Urine Clear (Clear); Color,Urine Yellow (Yellow); Glucose,Urine (UA) 200 mg/dL (Normal); Hyaline Casts,Urine Few per lpf (None Seen); Ketones,Urine Negative (Negative); Leukocyte Esterase,Urine Negative (Negative); Mucus,Urine Few per lpf (None-Few); Nitrite,Urine Negative (Negative); Protein,Urine 30 mg/dL (Neg-Trace); RBC,Urine 15-30 per hpf (0-3); Specific Gravity,Urine 1.022 (1.010-1.025); Urobilinogen,Urine Normal (Normal); WBC,Urine 0-3 per hpf (0-3)
[2020-07-03] MEDS: *HR* Metoprolol 5 MG/5 ML VIAL IVP SCH ×2 (12:03→18:06)
[2020-07-03] MEDS ORDERED: Haloperidol Lactate 5 MG/ML VIAL IVP ONE (12:27)
[2020-07-03] MEDS ORDERED: Furosemide 40 MG/4 ML VIAL IVP ONE (13:07)
[2020-07-03] MEDS ORDERED: Furosemide 40 MG/4 ML VIAL ONE (13:14)
[2020-07-03] MEDS ORDERED: Levalbuterol Neb 1.25 MG/3 ML IH ONE (13:20)
[2020-07-03] MEDS ORDERED: *HR* LORazepam 2 MG/ML VIAL IVP ONE (13:30)
[2020-07-03] MEDS ORDERED: *HR* LORazepam 2 MG/ML VIAL ONE (13:33)
[2020-07-03] MEDS: Ipratropium Neb 0.5 MG NEBULIZER IH SCH ×3 (15:30→23:15)
[2020-07-03] MEDS: *HR* Dextrose 50 % in Water (Vial) 50 ML VIAL IVP PRN ×2 (16:06→19:44)
[2020-07-03] MEDS: Hydrocortisone Sodium Succ 100 MG/2 ML VIAL IVP SCH (17:01)
[2020-07-04] MEDS: Insulin LISPRO 300 UNITS/3 ML VIAL SQ SCH ×7 (00:10→23:16)
[2020-07-04] MEDS: *HR* Metoprolol 5 MG/5 ML VIAL IVP SCH ×5 (00:11→23:16)
[2020-07-04] MEDS: Hydrocortisone Sodium Succ 100 MG/2 ML VIAL IVP SCH ×3 (00:15→18:02)
[2020-07-04] MEDS: Piperacillin/Tazobactam 3.375 GM in 0.9 % Sodium Chloride Mini Bag 100 ML IVPB SCH ×4 (00:15→23:08)
[2020-07-04] MEDS: Dexmedetomidine HCl 400 MCG/100 ML MLS IVC SCH ×7 (01:18→20:51)
[2020-07-04] MEDS: *HR* Heparin 5,000 UNIT/ML VIAL SQ SCH ×3 (02:33→18:02)
[2020-07-04] MEDS: *HR* LORazepam 2 MG/ML VIAL IVP PRN ×4 (02:33→21:08)
[2020-07-04] MEDS: Levalbuterol Neb 1.25 MG/3 ML IH SCH ×5 (03:14→19:33)
[2020-07-04] MEDS: Ipratropium Neb 0.5 MG NEBULIZER IH SCH ×5 (03:14→19:33)
[2020-07-04 04:37] LABS: VBG Ionized Calcium 1.21 mmol/L (1.15-1.35)
[2020-07-04 04:41] LABS: Hemoglobin 8.4 g/dL (12.9-16.9); Immature Granulocytes % 0.6 % (0-4); Mean Corpuscular Volume 101.5 fL (83.0-100.0)
[2020-07-04 04:43] LABS: Basophils % 0.2 %; Eosinophils # 0.1 K/mcL (0.0-0.6); Eosinophils % 0.5 %; Hematocrit 27.3 % (37.5-50.1); Immature Platelets 17.2 % (1.1-6.1); Lymphocytes # 0.6 K/mcL (0.6-4.6); Lymphocytes % 5.5 %; Mean Corpuscular HGB Conc 30.8 g/dL (31.6-35.5); Mean Corpuscular Hemoglobin 31.2 pg (28.0-33.3); Mean Platelet Volume 13.8 fL (9.4-12.4); Monocytes # 0.5 K/mcL (0.0-1.3); Nucleated Red Blood Cells 0.3 /100 WBC (0); Platelet Count 172 K/mcL (140-400); Red Blood Count 2.69 M/mcL (4.19-5.50); Red Cell Distribution Width 16.3 % (11.5-14.5); Segmented Neutrophils % 88.2 %; White Blood Count 10.6 K/mcL (4.3-11.1)
[2020-07-04 04:59] LABS: BUN/Creatinine Ratio 29 (6-26); Blood Urea Nitrogen 23 mg/dL (8-23); Calcium 8.8 mg/dL (8.6-10.3); Carbon Dioxide 35 mEq/L (23-29); Chloride 103 mEq/L (98-107); Glucose 159 mg/dL (70-105); Osmolality,Calculated 305 (280-300); Potassium 3.4 mEq/L (3.5-5.1); Sodium 144 mEq/L (136-145); eGFR For African Americans > 60 (> 60); eGFR For Non-African Americans > 60 (> 60)
[2020-07-04 05:28] LABS: Neutrophils # 9.4 K/mcL (1.6-8.9)
[2020-07-04 05:34] LABS: Magnesium 1.7 mg/dL (1.6-2.6); Phosphorous 2.7 mg/dL (2.7-4.5)
[2020-07-04] MEDS: Budesonide/Formoterol 160/4.5 1 PUFF INH IH SCH ×2 (07:30→19:33)
[2020-07-04] MEDS: Insulin DETEMIR 100 UNIT/ML X5UNITS SQ SCH ×2 (09:08→20:47)
[2020-07-04] MEDS: Pantoprazole 40 MG VIAL IVP SCH (09:09)
[2020-07-04] MEDS: Aspirin 81 MG TAB.CHEW PO SCH (09:19)
[2020-07-04] MEDS: Chlorhexidine Rinse 15 ML MOUTHWASH MM SCH ×2 (09:19→20:50)
[2020-07-04] MEDS: Docusate Oral Soln 100 MG/10 ML UDC GTUBE SCH ×2 (09:19→19:51)
[2020-07-04] MEDS: Lactulose Oral Soln 20 GM/30 ML UDC GTUBE SCH ×2 (09:19→19:51)
[2020-07-04] MEDS: Vancomycin 1,500 MG/265 ML IV.SOLN IVPB SCH ×2 (09:28→21:05)
[2020-07-04 11:10] LABS: % Iron Saturation 13 % (20-55); Iron 24 mcg/dL (65-175); Transferrin 137 mg/dL (203-362)
[2020-07-04] MEDS: Amiodarone Premix 360 MG/200 ML BAG IVC SCH (11:11)
[2020-07-04] MEDS: Norepinephrine 4 MG/254 ML IV.SOLN IVC SCH (11:22)
[2020-07-04] MEDS: *HR* Dextrose 50 % in Water (Vial) 50 ML VIAL IVP PRN (19:32)
[2020-07-04 20:16] LABS: Magnesium 2.2 mg/dL (1.6-2.6)
[2020-07-04] MEDS: Potassium Chloride 40 MEQ/200 ML BAG IVPB PRN ×2 (20:50→22:05)
[2020-07-05] MEDS: Levalbuterol Neb 1.25 MG/3 ML IH SCH ×6 (00:02→20:14)
[2020-07-05] MEDS: Ipratropium Neb 0.5 MG NEBULIZER IH SCH ×6 (00:02→20:14)
[2020-07-05] MEDS: Dexmedetomidine HCl 400 MCG/100 ML MLS IVC SCH ×9 (00:06→23:05)
[2020-07-05] MEDS: *HR* LORazepam 2 MG/ML VIAL IVP PRN ×2 (00:14→23:05)
[2020-07-05] MEDS: Amiodarone Premix 360 MG/200 ML BAG IVC SCH ×2 (00:17→12:57)
[2020-07-05] MEDS: *HR* Heparin 5,000 UNIT/ML VIAL SQ SCH ×3 (02:53→17:55)
[2020-07-05] MEDS: Insulin LISPRO 300 UNITS/3 ML VIAL SQ SCH ×5 (03:39→23:11)
[2020-07-05] MEDS: *HR* Dextrose 50 % in Water (Vial) 50 ML VIAL IVP PRN (03:39)
[2020-07-05 03:55] LABS: VBG Ionized Calcium 1.19 mmol/L (1.15-1.35)
[2020-07-05 04:04] LABS: Basophils % 0.2 %; Eosinophils # 0.1 K/mcL (0.0-0.6); Eosinophils % 0.7 %; Hematocrit 26.9 % (37.5-50.1); Hemoglobin 8.1 g/dL (12.9-16.9); Immature Granulocytes % 0.5 % (0-4); Lymphocytes # 0.8 K/mcL (0.6-4.6); Lymphocytes % 9.4 %; Mean Corpuscular HGB Conc 30.1 g/dL (31.6-35.5); Mean Corpuscular Hemoglobin 30.2 pg (28.0-33.3); Mean Corpuscular Volume 100.4 fL (83.0-100.0); Monocytes # 0.6 K/mcL (0.0-1.3); Monocytes % 7.4 %; Nucleated Red Blood Cells 0.4 /100 WBC (0); Platelet Count 174 K/mcL (140-400); Red Blood Count 2.68 M/mcL (4.19-5.50); Red Cell Distribution Width 16.8 % (11.5-14.5); Segmented Neutrophils % 81.8 %; White Blood Count 8.5 K/mcL (4.3-11.1)
[2020-07-05 04:10] LABS: BUN/Creatinine Ratio 23 (6-26); Blood Urea Nitrogen 17 mg/dL (8-23); Calcium 8.4 mg/dL (8.6-10.3); Carbon Dioxide 33 mEq/L (23-29); Chloride 108 mEq/L (98-107); Glucose 61 mg/dL (70-105); Osmolality,Calculated 305 (280-300); Potassium 3.1 mEq/L (3.5-5.1); Sodium 148 mEq/L (136-145); eGFR For African Americans > 60 (> 60); eGFR For Non-African Americans > 60 (> 60)
[2020-07-05 04:13] LABS: Magnesium 2.2 mg/dL (1.6-2.6); Phosphorous 2.9 mg/dL (2.7-4.5)
[2020-07-05] MEDS: *HR* Metoprolol 5 MG/5 ML VIAL IVP SCH ×4 (05:20→23:05)
[2020-07-05] MEDS: Hydrocortisone Sodium Succ 100 MG/2 ML VIAL IVP SCH (05:23)
[2020-07-05] MEDS: Potassium Chloride 40 MEQ/200 ML BAG IVPB PRN ×2 (05:24→06:36)
[2020-07-05] MEDS: Budesonide/Formoterol 160/4.5 1 PUFF INH IH SCH ×2 (07:43→20:14)
[2020-07-05] MEDS: Pantoprazole 40 MG VIAL IVP SCH (08:13)
[2020-07-05] MEDS: Piperacillin/Tazobactam 3.375 GM in 0.9 % Sodium Chloride Mini Bag 100 ML IVPB SCH ×3 (08:14→23:04)
[2020-07-05] MEDS: Lactulose Oral Soln 20 GM/30 ML UDC GTUBE SCH ×2 (08:23→20:43)
[2020-07-05] MEDS: Aspirin 81 MG TAB.CHEW PO SCH (08:23)
[2020-07-05] MEDS: Chlorhexidine Rinse 15 ML MOUTHWASH MM SCH ×2 (08:23→20:43)
[2020-07-05] MEDS: Docusate Oral Soln 100 MG/10 ML UDC GTUBE SCH ×2 (08:23→20:43)
[2020-07-05] MEDS: Norepinephrine 4 MG/254 ML IV.SOLN IVC SCH (09:30)
[2020-07-05] MEDS: Vancomycin 1,500 MG/265 ML IV.SOLN IVPB SCH ×2 (09:30→20:44)
[2020-07-05] MEDS ORDERED: OLANZapine 10 MG VIAL IM ONE ×2 (10:45→13:00)
[2020-07-05] MEDS: Insulin DETEMIR 100 UNIT/ML X5UNITS SQ SCH (20:44)
[2020-07-06] MEDS: Ipratropium Neb 0.5 MG NEBULIZER IH SCH ×7 (00:07→23:23)
[2020-07-06] MEDS: Levalbuterol Neb 1.25 MG/3 ML IH SCH ×7 (00:08→23:23)
[2020-07-06] MEDS: Amiodarone Premix 360 MG/200 ML BAG IVC SCH ×2 (00:51→14:13)
[2020-07-06] MEDS: Dexmedetomidine HCl 400 MCG/100 ML MLS IVC SCH ×9 (01:30→23:13)
[2020-07-06] MEDS: *HR* Heparin 5,000 UNIT/ML VIAL SQ SCH ×3 (03:25→20:34)
[2020-07-06 03:44] LABS: Basophils % 0.3 %; Eosinophils # 0.2 K/mcL (0.0-0.6); Eosinophils % 2.4 %; Hematocrit 28.2 % (37.5-50.1); Hemoglobin 8.4 g/dL (12.9-16.9); Immature Granulocytes % 0.5 % (0-4); Lymphocytes # 0.9 K/mcL (0.6-4.6); Lymphocytes % 13.6 %; Mean Corpuscular HGB Conc 29.8 g/dL (31.6-35.5); Mean Corpuscular Hemoglobin 30.2 pg (28.0-33.3); Mean Corpuscular Volume 101.4 fL (83.0-100.0); Mean Platelet Volume 12.7 fL (9.4-12.4); Monocytes # 0.5 K/mcL (0.0-1.3); Monocytes % 8.4 %; Neutrophils # 4.7 K/mcL (1.6-8.9); Nucleated Red Blood Cells 0.3 /100 WBC (0); Platelet Count 180 K/mcL (140-400); Red Blood Count 2.78 M/mcL (4.19-5.50); Red Cell Distribution Width 16.8 % (11.5-14.5); Segmented Neutrophils % 74.8 %; White Blood Count 6.3 K/mcL (4.3-11.1)
[2020-07-06 04:06] LABS: BUN/Creatinine Ratio 20 (6-26); Blood Urea Nitrogen 17 mg/dL (8-23); Calcium 8.2 mg/dL (8.6-10.3); Carbon Dioxide 32 mEq/L (23-29); Chloride 108 mEq/L (98-107); Glucose 180 mg/dL (70-105); Osmolality,Calculated 308 (280-300); Potassium 3.3 mEq/L (3.5-5.1); Sodium 146 mEq/L (136-145); eGFR For African Americans > 60 (> 60); eGFR For Non-African Americans > 60 (> 60)
[2020-07-06] MEDS: *HR* Metoprolol 5 MG/5 ML VIAL IVP SCH ×4 (05:28→23:14)
[2020-07-06] MEDS: Insulin LISPRO 300 UNITS/3 ML VIAL SQ SCH ×4 (05:28→23:14)
[2020-07-06] MEDS: Budesonide/Formoterol 160/4.5 1 PUFF INH IH SCH ×2 (07:18→19:51)
[2020-07-06] MEDS ORDERED: OLANZapine 10 MG VIAL IM ONE (08:14)
[2020-07-06] MEDS: Pantoprazole 40 MG VIAL IVP SCH (10:36)
[2020-07-06] MEDS: Piperacillin/Tazobactam 3.375 GM in 0.9 % Sodium Chloride Mini Bag 100 ML IVPB SCH ×3 (10:38→23:14)
[2020-07-06] MEDS: Chlorhexidine Rinse 15 ML MOUTHWASH MM SCH ×2 (10:59→20:34)
[2020-07-06] MEDS: Docusate Oral Soln 100 MG/10 ML UDC GTUBE SCH ×2 (10:59→20:34)
[2020-07-06] MEDS: Aspirin 81 MG TAB.CHEW PO SCH (10:59)
[2020-07-06] MEDS: Lactulose Oral Soln 20 GM/30 ML UDC GTUBE SCH ×2 (10:59→20:34)
[2020-07-06] MEDS: Vancomycin 1,500 MG/265 ML IV.SOLN IVPB SCH ×2 (11:01→20:48)
[2020-07-06] MEDS: Insulin DETEMIR 100 UNIT/ML X5UNITS SQ SCH ×2 (11:02→20:35)
[2020-07-06] MEDS ORDERED: Perflutren Lipid Microsphere 1.3 ML in 0.9 % Sodium Chloride 8.7 ML IVP PRN (12:08)
[2020-07-06] MEDS ORDERED: Artificial Tears SOLN 15 ML BOTTLE BOTH EYES PRN (12:10)
[2020-07-06 12:19] LABS: Basophils # 0.1 K/mcL (0.0-0.2); Basophils % 0.6 %; Eosinophils # 0.2 K/mcL (0.0-0.6); Eosinophils % 1.9 %; Hematocrit 35.1 % (37.5-50.1); Hemoglobin 10.4 g/dL (12.9-16.9); Immature Granulocytes % 1.1 % (0-4); Lymphocytes # 2.7 K/mcL (0.6-4.6); Lymphocytes % 30.4 %; Mean Corpuscular HGB Conc 29.6 g/dL (31.6-35.5); Mean Corpuscular Hemoglobin 30.3 pg (28.0-33.3); Mean Corpuscular Volume 102.3 fL (83.0-100.0); Monocytes # 0.5 K/mcL (0.0-1.3); Monocytes % 5.3 %; Neutrophils # 5.5 K/mcL (1.6-8.9); Nucleated Red Blood Cells 1.1 /100 WBC (0); Platelet Count 256 K/mcL (140-400); Red Blood Count 3.43 M/mcL (4.19-5.50); Segmented Neutrophils % 60.7 %
[2020-07-06 12:24] LABS: VBG Ionized Calcium 1.22 mmol/L (1.15-1.35)
[2020-07-06] MEDS ORDERED: *HR* FentaNYL (PF) 100 MCG/2 ML VIAL ONE (12:24)
[2020-07-06 12:25] LABS: INR 1.1
[2020-07-06 12:27] LABS: Activated Partial Thrombo Time 30.7 Seconds (26.0-36.0)
[2020-07-06] MEDS ORDERED: *HR* FentaNYL (PF) 100 MCG/2 ML VIAL IVP ONE (12:27)
[2020-07-06 12:41] LABS: Alanine Aminotransferase 39 Units/L (7-52); Albumin 2.9 g/dL (3.5-5.7); Albumin/Globulin Ratio 1.1 (1.1-2.2); Alkaline Phosphatase 45 Units/L (34-104); Aspartate Amino Transferase 33 Units/L (13-39); BUN/Creatinine Ratio 19 (6-26); Bilirubin,Direct 0.3 mg/dL (0.0-0.2); Bilirubin,Indirect 1.1 mg/dL (0.0-1.0); Bilirubin,Total 1.4 mg/dL (0.3-1.0); Blood Urea Nitrogen 16 mg/dL (8-23); Calcium 8.9 mg/dL (8.6-10.3); Carbon Dioxide 31 mEq/L (23-29); Chloride 106 mEq/L (98-107); Globulin 2.7 g/dL (2.4-3.5); Glucose 183 mg/dL (70-105); Magnesium 2.2 mg/dL (1.6-2.6); Osmolality,Calculated 308 (280-300); Phosphorous 3.6 mg/dL (2.7-4.5); Potassium 3.4 mEq/L (3.5-5.1); Sodium 146 mEq/L (136-145); Total Protein 5.6 g/dL (6.4-8.9); Troponin I 0.15 ng/mL (< 0.04); eGFR For African Americans > 60 (> 60); eGFR For Non-African Americans > 60 (> 60)
[2020-07-06] MEDS ORDERED: *HR* Midazolam HCl 5 MG/5 ML VIAL IVP ONE ×3 (12:57→16:19)
[2020-07-06] MEDS: FentaNYL (PF) 1,000 MCG/100 ML IV.SOLN IVC SCH ×2 (13:00→17:20)
[2020-07-06] MEDS ORDERED: Potassium Chloride Elixir 20 MEQ/15 ML UDC GTUBE ONE (13:57)
[2020-07-06] MEDS ORDERED: *HR* LORazepam 2 MG/ML VIAL ONE (13:57)
[2020-07-06] MEDS: *HR* LORazepam 2 MG/ML VIAL IVP PRN (14:01)
[2020-07-06] MEDS ORDERED: *HR* LORazepam 2 MG/ML VIAL IVP ONE (14:10)
[2020-07-06 14:29] LABS: ABG Base Excess 5 mEq/L (-2 to 3); ABG HCO3 32 mEq/L (21-27); ABG Oxygen Saturation 87 % (95-98); ABG PCO2 60 mmHg (35-45); ABG PH 7.33 pH Units (7.32-7.45); ABG PO2 58 mmHg (85-104); ABG TCO2 34 mEq/L (20-26); Blood Gas Modality CPAP/PS; Blood Gas VT 500 cc
[2020-07-06] MEDS: Midazolam HCl 50 MG/100 ML IV.SOLN IVC SCH (14:49)
[2020-07-06] MEDS ORDERED: *HR* Etomidate 20 MG/10 ML AMPUL IVP ONE (16:19)
[2020-07-06] MEDS: Artificial Tears SOLN 15 ML BOTTLE BOTH EYES SCH ×3 (16:49→23:14)
[2020-07-06] MEDS: Norepinephrine 4 MG/254 ML IV.SOLN IVC SCH (20:29)
[2020-07-07] MEDS: FentaNYL (PF) 1,000 MCG/100 ML IV.SOLN IVC SCH ×2 (00:19→08:03)
[2020-07-07] MEDS: *HR* Heparin 5,000 UNIT/ML VIAL SQ SCH ×3 (02:07→18:19)
[2020-07-07] MEDS: Midazolam HCl 50 MG/100 ML IV.SOLN IVC SCH (02:09)
[2020-07-07] MEDS: Artificial Tears SOLN 15 ML BOTTLE BOTH EYES SCH ×3 (03:19→11:58)
[2020-07-07] MEDS: Amiodarone Premix 360 MG/200 ML BAG IVC SCH ×2 (03:20→15:20)
[2020-07-07] MEDS: Dexmedetomidine HCl 400 MCG/100 ML MLS IVC SCH ×4 (03:25→18:18)
[2020-07-07] MEDS: Levalbuterol Neb 1.25 MG/3 ML IH SCH ×6 (03:26→23:52)
[2020-07-07] MEDS: Ipratropium Neb 0.5 MG NEBULIZER IH SCH ×6 (03:26→23:52)
[2020-07-07 03:35] LABS: Basophils % 0.3 %; Eosinophils # 0.2 K/mcL (0.0-0.6); Eosinophils % 2.6 %; Hematocrit 26.9 % (37.5-50.1); Immature Granulocytes % 0.5 % (0-4); Lymphocytes # 0.8 K/mcL (0.6-4.6); Lymphocytes % 13.2 %; Mean Corpuscular HGB Conc 29.7 g/dL (31.6-35.5); Mean Corpuscular Hemoglobin 31.5 pg (28.0-33.3); Mean Corpuscular Volume 105.9 fL (83.0-100.0); Mean Platelet Volume 12.9 fL (9.4-12.4); Monocytes # 0.5 K/mcL (0.0-1.3); Monocytes % 7.6 %; Neutrophils # 4.6 K/mcL (1.6-8.9); Nucleated Red Blood Cells 0.5 /100 WBC (0); Platelet Count 163 K/mcL (140-400); Red Blood Count 2.54 M/mcL (4.19-5.50); Red Cell Distribution Width 16.8 % (11.5-14.5); Segmented Neutrophils % 75.8 %; White Blood Count 6.1 K/mcL (4.3-11.1)
[2020-07-07 03:54] LABS: BUN/Creatinine Ratio 21 (6-26); Blood Urea Nitrogen 18 mg/dL (8-23); Calcium 8.3 mg/dL (8.6-10.3); Carbon Dioxide 33 mEq/L (23-29); Chloride 110 mEq/L (98-107); Glucose 110 mg/dL (70-105); Osmolality,Calculated 307 (280-300); Potassium 3.4 mEq/L (3.5-5.1); Sodium 147 mEq/L (136-145); eGFR For African Americans > 60 (> 60); eGFR For Non-African Americans > 60 (> 60)
[2020-07-07 04:58] LABS: ABG Base Excess 9 mEq/L (-2 to 3); ABG HCO3 35 mEq/L (21-27); ABG Oxygen Saturation 94 % (95-98); ABG PCO2 61 mmHg (35-45); ABG PH 7.37 pH Units (7.32-7.45); ABG PO2 76 mmHg (85-104); ABG TCO2 37 mEq/L (20-26); Blood Gas Modality CPAP/PS; Blood Gas Pressure Support 12 cm H2O
[2020-07-07] MEDS: *HR* Metoprolol 5 MG/5 ML VIAL IVP SCH ×4 (05:31→23:11)
[2020-07-07] MEDS: Insulin LISPRO 300 UNITS/3 ML VIAL SQ SCH ×4 (05:31→23:14)
[2020-07-07] MEDS: Budesonide/Formoterol 160/4.5 1 PUFF INH IH SCH ×2 (07:27→19:49)
[2020-07-07] MEDS: Pantoprazole 40 MG VIAL IVP SCH (08:36)
[2020-07-07] MEDS: Docusate Oral Soln 100 MG/10 ML UDC GTUBE SCH (08:36)
[2020-07-07] MEDS: Chlorhexidine Rinse 15 ML MOUTHWASH MM SCH (08:37)
[2020-07-07] MEDS: Lactulose Oral Soln 20 GM/30 ML UDC GTUBE SCH (08:37)
[2020-07-07] MEDS: Aspirin 81 MG TAB.CHEW PO SCH (08:37)
[2020-07-07] MEDS ORDERED: Furosemide 40 MG/4 ML VIAL IVP ONE (09:04)
[2020-07-07] MEDS ORDERED: Potassium Chloride Elixir 20 MEQ/15 ML UDC GTUBE ONE (09:06)
[2020-07-07] MEDS: Norepinephrine 4 MG/254 ML IV.SOLN IVC SCH (09:36)
[2020-07-07] MEDS: Insulin DETEMIR 100 UNIT/ML X5UNITS SQ SCH ×2 (11:54→21:17)
[2020-07-07 15:45] LABS: Hematocrit 32.2 % (37.5-50.1); Hemoglobin 9.5 g/dL (12.9-16.9)
[2020-07-07 16:04] LABS: BUN/Creatinine Ratio 18 (6-26); Blood Urea Nitrogen 16 mg/dL (8-23); Calcium 8.6 mg/dL (8.6-10.3); Carbon Dioxide 36 mEq/L (23-29); Chloride 108 mEq/L (98-107); Glucose 96 mg/dL (70-105); Magnesium 1.8 mg/dL (1.6-2.6); Osmolality,Calculated 307 (280-300); Phosphorous 3.4 mg/dL (2.7-4.5); Potassium 3.7 mEq/L (3.5-5.1); Sodium 148 mEq/L (136-145); eGFR For African Americans > 60 (> 60); eGFR For Non-African Americans > 60 (> 60)
[2020-07-07] MEDS: Lactulose Oral Soln 20 GM/30 ML UDC PO SCH (21:17)
[2020-07-07] MEDS: Sennosides 8.6 MG TABLET PO SCH (21:17)
[2020-07-08] MEDS: Dexmedetomidine HCl 400 MCG/100 ML MLS IVC SCH (02:33)
[2020-07-08] MEDS: Amiodarone Premix 360 MG/200 ML BAG IVC SCH ×2 (02:34→18:34)
[2020-07-08] MEDS: *HR* Heparin 5,000 UNIT/ML VIAL SQ SCH ×4 (03:11→19:50)
[2020-07-08 03:32] LABS: Basophils % 0.1 %; Eosinophils # 0.1 K/mcL (0.0-0.6); Eosinophils % 1.3 %; Hematocrit 29.2 % (37.5-50.1); Hemoglobin 8.5 g/dL (12.9-16.9); Immature Granulocytes % 0.3 % (0-4); Lymphocytes # 0.7 K/mcL (0.6-4.6); Lymphocytes % 10.6 %; Mean Corpuscular HGB Conc 29.1 g/dL (31.6-35.5); Mean Corpuscular Hemoglobin 29.9 pg (28.0-33.3); Mean Corpuscular Volume 102.8 fL (83.0-100.0); Mean Platelet Volume 12.6 fL (9.4-12.4); Monocytes # 0.7 K/mcL (0.0-1.3); Monocytes % 10.2 %; Neutrophils # 5.3 K/mcL (1.6-8.9); Platelet Count 191 K/mcL (140-400); Red Blood Count 2.84 M/mcL (4.19-5.50); Red Cell Distribution Width 17.4 % (11.5-14.5); Segmented Neutrophils % 77.5 %; White Blood Count 6.8 K/mcL (4.3-11.1)
[2020-07-08] MEDS: Levalbuterol Neb 1.25 MG/3 ML IH SCH ×6 (03:35→23:39)
[2020-07-08] MEDS: Ipratropium Neb 0.5 MG NEBULIZER IH SCH ×6 (03:35→23:39)
[2020-07-08 03:52] LABS: BUN/Creatinine Ratio 18 (6-26); Blood Urea Nitrogen 15 mg/dL (8-23); Calcium 8.6 mg/dL (8.6-10.3); Carbon Dioxide 32 mEq/L (23-29); Chloride 109 mEq/L (98-107); Glucose 105 mg/dL (70-105); Osmolality,Calculated 305 (280-300); Potassium 3.5 mEq/L (3.5-5.1); Sodium 147 mEq/L (136-145); eGFR For African Americans > 60 (> 60); eGFR For Non-African Americans > 60 (> 60)
[2020-07-08] MEDS: *HR* Metoprolol 5 MG/5 ML VIAL IVP SCH (05:42)
[2020-07-08] MEDS: Insulin LISPRO 300 UNITS/3 ML VIAL SQ SCH ×4 (05:43→20:17)
[2020-07-08] MEDS: Budesonide/Formoterol 160/4.5 1 PUFF INH IH SCH ×2 (07:14→19:55)
[2020-07-08] MEDS ORDERED: Furosemide 20 MG/2 ML VIAL IVP ONE (08:42)
[2020-07-08] MEDS ORDERED: Furosemide 20 MG/2 ML VIAL IVP SCH (09:00)
[2020-07-08] MEDS: Pantoprazole 40 MG VIAL IVP SCH (09:28)
[2020-07-08] MEDS: Aspirin 81 MG TAB.CHEW PO SCH (09:40)
[2020-07-08] MEDS: Insulin DETEMIR 100 UNIT/ML X5UNITS SQ SCH ×2 (09:43→20:17)
[2020-07-08] MEDS: Lactulose Oral Soln 20 GM/30 ML UDC PO SCH ×2 (11:03→20:14)
[2020-07-08] MEDS: Norepinephrine 4 MG/254 ML IV.SOLN IVC SCH (11:03)
[2020-07-08] MEDS ORDERED: *HR* Metoprolol 5 MG/5 ML VIAL IVP ONE (11:05)
[2020-07-08] MEDS ORDERED: Metoprolol XL (24 HR) Succ 25 MG TAB.ER.24H PO SCH (11:15)
[2020-07-08] MEDS: Sennosides 8.6 MG TABLET PO SCH (20:14)
[2020-07-09] MEDS: Ipratropium Neb 0.5 MG NEBULIZER IH SCH ×6 (03:40→23:29)
[2020-07-09] MEDS: Levalbuterol Neb 1.25 MG/3 ML IH SCH ×6 (03:40→23:29)
[2020-07-09] MEDS: *HR* Heparin 5,000 UNIT/ML VIAL SQ SCH ×3 (03:44→20:02)
[2020-07-09 04:03] LABS: Basophils % 0.1 %; Eosinophils % 0.3 %; Hematocrit 29.2 % (37.5-50.1); Immature Granulocytes % 0.5 % (0-4); Lymphocytes # 0.6 K/mcL (0.6-4.6); Mean Corpuscular HGB Conc 30.8 g/dL (31.6-35.5); Mean Corpuscular Hemoglobin 31.5 pg (28.0-33.3); Mean Corpuscular Volume 102.1 fL (83.0-100.0); Mean Platelet Volume 12.1 fL (9.4-12.4); Monocytes # 0.7 K/mcL (0.0-1.3); Monocytes % 9.4 %; Neutrophils # 6.4 K/mcL (1.6-8.9); Platelet Count 234 K/mcL (140-400); Red Blood Count 2.86 M/mcL (4.19-5.50); Red Cell Distribution Width 17.6 % (11.5-14.5); Segmented Neutrophils % 81.7 %; White Blood Count 7.8 K/mcL (4.3-11.1)
[2020-07-09 04:20] LABS: BUN/Creatinine Ratio 17 (6-26); Blood Urea Nitrogen 15 mg/dL (8-23); Calcium 8.6 mg/dL (8.6-10.3); Carbon Dioxide 29 mEq/L (23-29); Chloride 103 mEq/L (98-107); Glucose 200 mg/dL (70-105); Osmolality,Calculated 300 (280-300); Potassium 3.4 mEq/L (3.5-5.1); Sodium 142 mEq/L (136-145); eGFR For African Americans > 60 (> 60); eGFR For Non-African Americans > 60 (> 60)
[2020-07-09 04:53] LABS: Magnesium 1.8 mg/dL (1.6-2.6)
[2020-07-09] MEDS ORDERED: Magnesium Sulfate 1 GM/102 ML PIGGYBACK IVPB ONE (05:02)
[2020-07-09] MEDS: *HR* Metoprolol 5 MG/5 ML VIAL IVP PRN ×2 (05:12→22:38)
[2020-07-09] MEDS: Amiodarone Premix 360 MG/200 ML BAG IVC SCH ×2 (05:13→17:05)
[2020-07-09] MEDS: Budesonide/Formoterol 160/4.5 1 PUFF INH IH SCH ×2 (07:42→20:01)
[2020-07-09] MEDS: Insulin LISPRO 300 UNITS/3 ML VIAL SQ SCH ×4 (08:30→20:03)
[2020-07-09] MEDS: Furosemide 40 MG/4 ML VIAL IVP ONE (09:53)
[2020-07-09] MEDS: Aspirin 81 MG TAB.CHEW PO SCH (09:53)
[2020-07-09] MEDS: lisinopriL 10 MG TABLET PO SCH (09:54)
[2020-07-09] MEDS: Metoprolol XL (24 HR) Succ 50 MG TAB.ER.24H PO SCH (09:54)
[2020-07-09] MEDS: Lactulose Oral Soln 20 GM/30 ML UDC PO SCH ×2 (09:54→20:04)
[2020-07-09] MEDS: Norepinephrine 4 MG/254 ML IV.SOLN IVC SCH (19:09)
[2020-07-09] MEDS: Insulin DETEMIR 100 UNIT/ML X5UNITS SQ SCH (20:03)
[2020-07-09] MEDS: Sennosides 8.6 MG TABLET PO SCH (20:04)
[2020-07-09 20:42] LABS: Alanine Aminotransferase 24 Units/L (7-52); Albumin 2.9 g/dL (3.5-5.7); Albumin/Globulin Ratio 1.1 (1.1-2.2); Alkaline Phosphatase 39 Units/L (34-104); Aspartate Amino Transferase 19 Units/L (13-39); BUN/Creatinine Ratio 16 (6-26); Bilirubin,Total 0.9 mg/dL (0.3-1.0); Blood Urea Nitrogen 15 mg/dL (8-23); Calcium 8.9 mg/dL (8.6-10.3); Carbon Dioxide 31 mEq/L (23-29); Chloride 103 mEq/L (98-107); Globulin 2.7 g/dL (2.4-3.5); Glucose 216 mg/dL (70-105); Osmolality,Calculated 297 (280-300); Potassium 3.4 mEq/L (3.5-5.1); Sodium 140 mEq/L (136-145); Total Protein 5.6 g/dL (6.4-8.9); eGFR For African Americans > 60 (> 60); eGFR For Non-African Americans > 60 (> 60)
[2020-07-10] MEDS: Levalbuterol Neb 1.25 MG/3 ML IH SCH ×5 (03:30→19:42)
[2020-07-10] MEDS: Ipratropium Neb 0.5 MG NEBULIZER IH SCH ×5 (03:30→19:42)
[2020-07-10] MEDS: *HR* Heparin 5,000 UNIT/ML VIAL SQ SCH ×3 (03:34→19:49)
[2020-07-10 03:56] LABS: Basophils % 0.1 %; Eosinophils # 0.1 K/mcL (0.0-0.6); Eosinophils % 0.7 %; Hematocrit 30.7 % (37.5-50.1); Hemoglobin 9.2 g/dL (12.9-16.9); Immature Granulocytes % 0.4 % (0-4); Lymphocytes # 0.8 K/mcL (0.6-4.6); Lymphocytes % 10.2 %; Mean Corpuscular Hemoglobin 30.5 pg (28.0-33.3); Mean Corpuscular Volume 101.7 fL (83.0-100.0); Mean Platelet Volume 12.4 fL (9.4-12.4); Monocytes # 0.7 K/mcL (0.0-1.3); Monocytes % 8.9 %; Neutrophils # 5.9 K/mcL (1.6-8.9); Platelet Count 249 K/mcL (140-400); Red Blood Count 3.02 M/mcL (4.19-5.50); Red Cell Distribution Width 17.7 % (11.5-14.5); Segmented Neutrophils % 79.7 %; White Blood Count 7.3 K/mcL (4.3-11.1)
[2020-07-10] MEDS: Amiodarone Premix 360 MG/200 ML BAG IVC SCH ×2 (03:59→16:15)
[2020-07-10 04:01] LABS: BUN/Creatinine Ratio 15 (6-26); Blood Urea Nitrogen 15 mg/dL (8-23); Calcium 8.8 mg/dL (8.6-10.3); Carbon Dioxide 35 mEq/L (23-29); Chloride 104 mEq/L (98-107); Glucose 197 mg/dL (70-105); Osmolality,Calculated 304 (280-300); Potassium 3.5 mEq/L (3.5-5.1); Sodium 144 mEq/L (136-145); eGFR For African Americans > 60 (> 60); eGFR For Non-African Americans > 60 (> 60)
[2020-07-10] MEDS: Dexmedetomidine HCl 400 MCG/100 ML MLS IVC SCH ×2 (06:18→19:52)
[2020-07-10] MEDS: Budesonide/Formoterol 160/4.5 1 PUFF INH IH SCH ×2 (07:48→19:42)
[2020-07-10] MEDS: lisinopriL 10 MG TABLET PO SCH ×2 (08:48→13:59)
[2020-07-10] MEDS: Aspirin 81 MG TAB.CHEW PO SCH (08:48)
[2020-07-10] MEDS: Metoprolol XL (24 HR) Succ 50 MG TAB.ER.24H PO SCH (08:48)
[2020-07-10] MEDS: Insulin LISPRO 300 UNITS/3 ML VIAL SQ SCH ×4 (08:50→19:50)
[2020-07-10] MEDS ORDERED: haloperidoL 5 MG TABLET PO PRN (09:13)
[2020-07-10] MEDS: Lactulose Oral Soln 20 GM/30 ML UDC PO SCH ×2 (10:44→19:51)
[2020-07-10] MEDS ORDERED: lisinopriL 10 MG TABLET PO ONE (12:00)
[2020-07-10] MEDS ORDERED: Furosemide 40 MG/4 ML VIAL IVP ONE (12:32)
[2020-07-10] MEDS: *HR* Metoprolol 5 MG/5 ML VIAL IVP PRN (13:59)
[2020-07-10] MEDS: Furosemide 40 MG/4 ML VIAL IVP ONE (13:59)
[2020-07-10] MEDS ORDERED: amLODIPine 5 MG TABLET PO ONE (19:04)
[2020-07-10] MEDS: Norepinephrine 4 MG/254 ML IV.SOLN IVC SCH (19:24)
[2020-07-10] MEDS: niCARdipine 20 MG/200 ML MLS IVC SCH ×2 (19:49→23:38)
[2020-07-10] MEDS: Sennosides 8.6 MG TABLET PO SCH (19:51)
[2020-07-10] MEDS: Insulin DETEMIR 100 UNIT/ML X5UNITS SQ SCH (19:52)
[2020-07-11] MEDS: Levalbuterol Neb 1.25 MG/3 ML IH SCH ×7 (00:03→23:46)
[2020-07-11] MEDS: Ipratropium Neb 0.5 MG NEBULIZER IH SCH ×7 (00:03→23:46)
[2020-07-11] MEDS: *HR* Heparin 5,000 UNIT/ML VIAL SQ SCH ×3 (03:55→20:19)
[2020-07-11 03:56] LABS: Basophils % 0.3 %; Eosinophils # 0.1 K/mcL (0.0-0.6); Eosinophils % 1.3 %; Hematocrit 31.7 % (37.5-50.1); Hemoglobin 9.5 g/dL (12.9-16.9); Immature Granulocytes % 0.5 % (0-4); Lymphocytes # 0.7 K/mcL (0.6-4.6); Lymphocytes % 11.2 %; Mean Corpuscular Hemoglobin 30.5 pg (28.0-33.3); Mean Corpuscular Volume 101.9 fL (83.0-100.0); Mean Platelet Volume 12.2 fL (9.4-12.4); Monocytes # 0.5 K/mcL (0.0-1.3); Monocytes % 8.8 %; Neutrophils # 4.7 K/mcL (1.6-8.9); Platelet Count 236 K/mcL (140-400); Red Blood Count 3.11 M/mcL (4.19-5.50); Red Cell Distribution Width 17.5 % (11.5-14.5); Segmented Neutrophils % 77.9 %; White Blood Count 6.1 K/mcL (4.3-11.1)
[2020-07-11 04:09] LABS: BUN/Creatinine Ratio 13 (6-26); Blood Urea Nitrogen 12 mg/dL (8-23); Calcium 8.7 mg/dL (8.6-10.3); Carbon Dioxide 33 mEq/L (23-29); Chloride 104 mEq/L (98-107); Glucose 181 mg/dL (70-105); Osmolality,Calculated 298 (280-300); Sodium 142 mEq/L (136-145); eGFR For African Americans > 60 (> 60); eGFR For Non-African Americans > 60 (> 60)
[2020-07-11] MEDS: niCARdipine 20 MG/200 ML MLS IVC SCH ×5 (05:06→21:00)
[2020-07-11] MEDS: Amiodarone Premix 360 MG/200 ML BAG IVC SCH (05:53)
[2020-07-11] MEDS: Budesonide/Formoterol 160/4.5 1 PUFF INH IH SCH ×2 (07:26→20:05)
[2020-07-11] MEDS: Insulin LISPRO 300 UNITS/3 ML VIAL SQ SCH ×4 (09:00→20:21)
[2020-07-11] MEDS: lisinopriL 20 MG TABLET PO SCH (09:54)
[2020-07-11] MEDS: Metoprolol XL (24 HR) Succ 50 MG TAB.ER.24H PO SCH (09:54)
[2020-07-11] MEDS: Aspirin 81 MG TAB.CHEW PO SCH (09:54)
[2020-07-11] MEDS: lisinopriL 10 MG TABLET PO SCH (09:54)
[2020-07-11] MEDS: *HR* Amiodarone 200 MG TABLET PO SCH ×2 (10:41→20:19)
[2020-07-11] MEDS: Lactulose Oral Soln 20 GM/30 ML UDC PO SCH ×2 (10:58→20:21)
[2020-07-11] MEDS: Norepinephrine 4 MG/254 ML IV.SOLN IVC SCH (10:59)
[2020-07-11 12:11] LABS: Amorphous Sediment,Urine Many per hpf (None-Few); Bacteria,Urine Few per hpf (None-Few); Bilirubin,Urine Negative (Negative); Blood,Urine Negative (Negative); Clarity,Urine Turbid (Clear); Color,Urine Yellow (Yellow); Glucose,Urine (UA) 70 mg/dL (Normal); Ketones,Urine Negative (Negative); Leukocyte Esterase,Urine Trace (Negative); Mucus,Urine Few per lpf (None-Few); Nitrite,Urine Negative (Negative); PH,Urine 7.5 pH Units (5.0-8.0); Protein,Urine Trace mg/dL (Neg-Trace); RBC,Urine 0-3 per hpf (0-3); Specific Gravity,Urine 1.015 (1.010-1.025)
[2020-07-11] MEDS: Dexmedetomidine HCl 400 MCG/100 ML MLS IVC SCH (13:04)
[2020-07-11] MEDS: cefTRIAXone 1,000 MG in Water for inj. (sterile) 10 ML IVP SCH (14:10)
[2020-07-11] MEDS ORDERED: Amiodarone Premix 360 MG/200 ML BAG IVC SCH (19:30)
[2020-07-11] MEDS: OLANZapine 10 MG VIAL IM SCH (20:19)
[2020-07-11] MEDS: Insulin DETEMIR 100 UNIT/ML X5UNITS SQ SCH (20:21)
[2020-07-11] MEDS: Sennosides 8.6 MG TABLET PO SCH (20:22)
[2020-07-11 20:28] LABS: Alanine Aminotransferase 26 Units/L (7-52); Albumin/Globulin Ratio 1.1 (1.1-2.2); Alkaline Phosphatase 40 Units/L (34-104); Aspartate Amino Transferase 21 Units/L (13-39); BUN/Creatinine Ratio 14 (6-26); Bilirubin,Total 0.9 mg/dL (0.3-1.0); Blood Urea Nitrogen 11 mg/dL (8-23); Calcium 8.7 mg/dL (8.6-10.3); Carbon Dioxide 33 mEq/L (23-29); Chloride 105 mEq/L (98-107); Globulin 2.8 g/dL (2.4-3.5); Glucose 216 mg/dL (70-105); Magnesium 1.9 mg/dL (1.6-2.6); Osmolality,Calculated 300 (280-300); Phosphorous 2.7 mg/dL (2.7-4.5); Potassium 3.5 mEq/L (3.5-5.1); Sodium 142 mEq/L (136-145); Total Protein 5.8 g/dL (6.4-8.9); eGFR For African Americans > 60 (> 60); eGFR For Non-African Americans > 60 (> 60)
[2020-07-11] MEDS ORDERED: Potassium Phosphate 44 MEQ in 0.9 % Sodium Chloride 250 ML IVPB ONE (21:10)
[2020-07-12] MEDS: niCARdipine 20 MG/200 ML MLS IVC SCH ×6 (00:27→23:18)
[2020-07-12] MEDS: *HR* Heparin 5,000 UNIT/ML VIAL SQ SCH ×3 (03:01→20:06)
[2020-07-12] MEDS: OLANZapine 10 MG VIAL IM SCH ×3 (03:01→10:31)
[2020-07-12] MEDS: Levalbuterol Neb 1.25 MG/3 ML IH SCH ×5 (03:41→20:30)
[2020-07-12] MEDS: Ipratropium Neb 0.5 MG NEBULIZER IH SCH ×5 (03:41→20:30)
[2020-07-12 05:36] LABS: Basophils % 0.3 %; Eosinophils # 0.1 K/mcL (0.0-0.6); Eosinophils % 1.4 %; Hematocrit 32.1 % (37.5-50.1); Hemoglobin 9.6 g/dL (12.9-16.9); Immature Granulocytes % 0.3 % (0-4); Lymphocytes # 0.7 K/mcL (0.6-4.6); Lymphocytes % 11.2 %; Mean Corpuscular HGB Conc 29.9 g/dL (31.6-35.5); Mean Corpuscular Hemoglobin 30.7 pg (28.0-33.3); Mean Corpuscular Volume 102.6 fL (83.0-100.0); Monocytes # 0.6 K/mcL (0.0-1.3); Monocytes % 8.7 %; Platelet Count 243 K/mcL (140-400); Red Blood Count 3.13 M/mcL (4.19-5.50); Red Cell Distribution Width 17.7 % (11.5-14.5); Segmented Neutrophils % 78.1 %; White Blood Count 6.4 K/mcL (4.3-11.1)
[2020-07-12 05:56] LABS: BUN/Creatinine Ratio 14 (6-26); Blood Urea Nitrogen 12 mg/dL (8-23); Calcium 8.8 mg/dL (8.6-10.3); Carbon Dioxide 30 mEq/L (23-29); Chloride 107 mEq/L (98-107); Glucose 219 mg/dL (70-105); Osmolality,Calculated 302 (280-300); Phosphorous 3.5 mg/dL (2.7-4.5); Potassium 3.7 mEq/L (3.5-5.1); Sodium 143 mEq/L (136-145); eGFR For African Americans > 60 (> 60); eGFR For Non-African Americans > 60 (> 60)
[2020-07-12] MEDS: Budesonide/Formoterol 160/4.5 1 PUFF INH IH SCH ×2 (07:17→20:27)
[2020-07-12] MEDS ORDERED: cefTRIAXone 1,000 MG in Water for inj. (sterile) 10 ML IVP SCH (09:00)
[2020-07-12] MEDS: cefTRIAXone 1,000 MG in Water for inj. (sterile) 10 ML IVP SCH (10:11)
[2020-07-12] MEDS: lisinopriL 10 MG TABLET PO SCH ×2 (10:14→10:31)
[2020-07-12] MEDS: Aspirin 81 MG TAB.CHEW PO SCH (10:14)
[2020-07-12] MEDS: *HR* Amiodarone 200 MG TABLET PO SCH ×2 (10:14→20:05)
[2020-07-12] MEDS: Metoprolol XL (24 HR) Succ 50 MG TAB.ER.24H PO SCH (10:14)
[2020-07-12] MEDS: lisinopriL 20 MG TABLET PO SCH (10:15)
[2020-07-12] MEDS: Lactulose Oral Soln 20 GM/30 ML UDC PO SCH ×2 (10:15→22:28)
[2020-07-12] MEDS: Insulin LISPRO 300 UNITS/3 ML VIAL SQ SCH ×4 (10:16→20:06)
[2020-07-12] MEDS: Dexmedetomidine HCl 400 MCG/100 ML MLS IVC SCH (10:16)
[2020-07-12] MEDS: Norepinephrine 4 MG/254 ML IV.SOLN IVC SCH (10:16)
[2020-07-12] MEDS ORDERED: Melatonin 3 MG TABLET PO PRN (10:51)
[2020-07-12] MEDS: QUEtiapine Fumarate 25 MG TABLET PO SCH ×2 (11:00→20:05)
[2020-07-12] MEDS: Vitamin A AND D OINT 42.5 GM Tube TP SCH (11:49)
[2020-07-12] MEDS: Insulin DETEMIR 100 UNIT/ML X5UNITS SQ SCH (20:06)
[2020-07-12] MEDS: Sennosides 8.6 MG TABLET PO SCH (22:28)
[2020-07-13] MEDS: Ipratropium Neb 0.5 MG NEBULIZER IH SCH ×6 (00:11→20:09)
[2020-07-13] MEDS: Levalbuterol Neb 1.25 MG/3 ML IH SCH ×6 (00:11→20:09)
[2020-07-13] MEDS: Vitamin A AND D OINT 42.5 GM Tube TP SCH ×3 (03:33→20:05)
[2020-07-13] MEDS: *HR* Heparin 5,000 UNIT/ML VIAL SQ SCH ×3 (03:33→23:12)
[2020-07-13 04:18] LABS: Basophils % 0.2 %; Eosinophils # 0.2 K/mcL (0.0-0.6); Eosinophils % 2.8 %; Hematocrit 30.3 % (37.5-50.1); Hemoglobin 9.1 g/dL (12.9-16.9); Immature Granulocytes % 0.3 % (0-4); Lymphocytes # 0.8 K/mcL (0.6-4.6); Lymphocytes % 13.9 %; Mean Corpuscular Hemoglobin 30.7 pg (28.0-33.3); Mean Corpuscular Volume 102.4 fL (83.0-100.0); Mean Platelet Volume 12.3 fL (9.4-12.4); Monocytes # 0.5 K/mcL (0.0-1.3); Monocytes % 8.5 %; Neutrophils # 4.3 K/mcL (1.6-8.9); Platelet Count 229 K/mcL (140-400); Red Blood Count 2.96 M/mcL (4.19-5.50); Red Cell Distribution Width 17.7 % (11.5-14.5); Segmented Neutrophils % 74.3 %; White Blood Count 5.8 K/mcL (4.3-11.1)
[2020-07-13 04:22] LABS: Alanine Aminotransferase 20 Units/L (7-52); Albumin 2.7 g/dL (3.5-5.7); Albumin/Globulin Ratio 1.2 (1.1-2.2); Alkaline Phosphatase 40 Units/L (34-104); Aspartate Amino Transferase 18 Units/L (13-39); BUN/Creatinine Ratio 16 (6-26); Bilirubin,Total 0.7 mg/dL (0.3-1.0); Blood Urea Nitrogen 15 mg/dL (8-23); Calcium 8.6 mg/dL (8.6-10.3); Carbon Dioxide 31 mEq/L (23-29); Chloride 107 mEq/L (98-107); Globulin 2.3 g/dL (2.4-3.5); Glucose 147 mg/dL (70-105); Osmolality,Calculated 300 (280-300); Potassium 3.2 mEq/L (3.5-5.1); Sodium 143 mEq/L (136-145); eGFR For African Americans > 60 (> 60); eGFR For Non-African Americans > 60 (> 60)
[2020-07-13] MEDS: niCARdipine 20 MG/200 ML MLS IVC SCH ×3 (07:25→08:38)
[2020-07-13] MEDS: Aspirin 81 MG TAB.CHEW PO SCH (07:26)
[2020-07-13] MEDS: lisinopriL 20 MG TABLET PO SCH (07:26)
[2020-07-13] MEDS: QUEtiapine Fumarate 25 MG TABLET PO SCH ×2 (07:26→20:04)
[2020-07-13] MEDS: Lactulose Oral Soln 20 GM/30 ML UDC PO SCH ×2 (07:26→20:03)
[2020-07-13] MEDS: *HR* Amiodarone 200 MG TABLET PO SCH ×2 (07:26→20:04)
[2020-07-13] MEDS: Metoprolol XL (24 HR) Succ 50 MG TAB.ER.24H PO SCH (07:27)
[2020-07-13] MEDS: cefTRIAXone 1,000 MG in Water for inj. (sterile) 10 ML IVP SCH (07:27)
[2020-07-13] MEDS: Budesonide/Formoterol 160/4.5 1 PUFF INH IH SCH ×2 (07:41→20:09)
[2020-07-13] MEDS: Insulin LISPRO 300 UNITS/3 ML VIAL SQ SCH ×4 (08:37→20:15)
[2020-07-13] MEDS ORDERED: Naloxone 0.4 MG/ML INJ IVP PRN (14:56)
[2020-07-13] MEDS ORDERED: *HR* Dextrose 50 % in Water (Vial) 50 ML VIAL IVP PRN (14:56)
[2020-07-13] MEDS ORDERED: Calcium Gluconate 1gm/50mL 1 GM/50 ML BAG IVPB PRN (14:56)
[2020-07-13] MEDS ORDERED: Dextrose Gel 15 GM/37.5 ML TUBE PO PRN ×2 (14:56)
[2020-07-13] MEDS ORDERED: Potassium Chloride 40 MEQ/200 ML BAG IVPB PRN (14:56)
[2020-07-13] MEDS ORDERED: Acetaminophen 325 MG TABLET PO PRN (14:56)
[2020-07-13] MEDS ORDERED: Melatonin 3 MG TABLET PO PRN (14:56)
[2020-07-13] MEDS: Sennosides 8.6 MG TABLET PO SCH (20:04)
[2020-07-13] MEDS: Insulin DETEMIR 100 UNIT/ML X5UNITS SQ SCH (20:14)
[2020-07-14] MEDS: Levalbuterol Neb 1.25 MG/3 ML IH SCH ×7 (00:11→23:39)
[2020-07-14] MEDS: Ipratropium Neb 0.5 MG NEBULIZER IH SCH ×7 (00:11→23:39)
[2020-07-14] MEDS: *HR* Heparin 5,000 UNIT/ML VIAL SQ SCH ×3 (06:15→20:27)
[2020-07-14] MEDS: Budesonide/Formoterol 160/4.5 1 PUFF INH IH SCH ×2 (07:22→19:53)
[2020-07-14] MEDS: QUEtiapine Fumarate 25 MG TABLET PO SCH ×2 (07:45→20:27)
[2020-07-14] MEDS: *HR* Amiodarone 200 MG TABLET PO SCH ×2 (07:45→20:26)
[2020-07-14] MEDS: Metoprolol XL (24 HR) Succ 50 MG TAB.ER.24H PO SCH (07:45)
[2020-07-14] MEDS: Aspirin 81 MG TAB.CHEW PO SCH (07:45)
[2020-07-14] MEDS: Lactulose Oral Soln 20 GM/30 ML UDC PO SCH ×2 (07:46→20:26)
[2020-07-14] MEDS: lisinopriL 20 MG TABLET PO SCH (07:46)
[2020-07-14] MEDS: Vitamin A AND D OINT 42.5 GM Tube TP SCH ×2 (07:47→20:25)
[2020-07-14] MEDS: Insulin LISPRO 300 UNITS/3 ML VIAL SQ SCH ×4 (07:47→20:26)
[2020-07-14 11:36] LABS: BUN/Creatinine Ratio 17 (6-26); Blood Urea Nitrogen 14 mg/dL (8-23); Calcium 8.5 mg/dL (8.6-10.3); Carbon Dioxide 32 mEq/L (23-29); Chloride 108 mEq/L (98-107); Glucose 181 mg/dL (70-105); Magnesium 1.8 mg/dL (1.6-2.6); Osmolality,Calculated 301 (280-300); Potassium 3.5 mEq/L (3.5-5.1); Sodium 143 mEq/L (136-145); eGFR For African Americans > 60 (> 60); eGFR For Non-African Americans > 60 (> 60)
[2020-07-14] MEDS ORDERED: 0.9 % Sodium Chloride 1,000 ML ONE (15:19)
[2020-07-14] MEDS ORDERED: 0.9 % Sodium Chloride 500 ML ONE (15:19)
[2020-07-14] MEDS ORDERED: *HR* FentaNYL (PF) 100 MCG/2 ML VIAL ONE (15:42)
[2020-07-14] MEDS ORDERED: *HR* Midazolam HCl 2 MG/2 ML VIAL ONE (15:42)
[2020-07-14] MEDS ORDERED: amLODIPine 5 MG TABLET PO STA (17:57)
[2020-07-14] MEDS: Insulin DETEMIR 100 UNIT/ML X5UNITS SQ SCH (20:26)
[2020-07-14] MEDS: Sennosides 8.6 MG TABLET PO SCH (20:27)
[2020-07-15 00:17] LABS: Basophils % 0.2 %; Eosinophils # 0.2 K/mcL (0.0-0.6); Eosinophils % 3.9 %; Hematocrit 31.8 % (37.5-50.1); Hemoglobin 9.4 g/dL (12.9-16.9); Immature Granulocytes % 0.2 % (0-4); Lymphocytes # 0.6 K/mcL (0.6-4.6); Lymphocytes % 10.3 %; Mean Corpuscular HGB Conc 29.6 g/dL (31.6-35.5); Mean Corpuscular Hemoglobin 30.7 pg (28.0-33.3); Mean Corpuscular Volume 103.9 fL (83.0-100.0); Mean Platelet Volume 12.3 fL (9.4-12.4); Monocytes # 0.4 K/mcL (0.0-1.3); Monocytes % 7.6 %; Neutrophils # 4.4 K/mcL (1.6-8.9); Platelet Count 207 K/mcL (140-400); Red Blood Count 3.06 M/mcL (4.19-5.50); Red Cell Distribution Width 17.4 % (11.5-14.5); Segmented Neutrophils % 77.8 %; White Blood Count 5.6 K/mcL (4.3-11.1)
[2020-07-15 00:34] LABS: BUN/Creatinine Ratio 14 (6-26); Blood Urea Nitrogen 11 mg/dL (8-23); Calcium 8.6 mg/dL (8.6-10.3); Carbon Dioxide 31 mEq/L (23-29); Chloride 107 mEq/L (98-107); Glucose 162 mg/dL (70-105); Osmolality,Calculated 299 (280-300); Potassium 3.5 mEq/L (3.5-5.1); Sodium 143 mEq/L (136-145); eGFR For African Americans > 60 (> 60); eGFR For Non-African Americans > 60 (> 60)
[2020-07-15] MEDS: Ipratropium Neb 0.5 MG NEBULIZER IH SCH ×3 (03:45→11:14)
[2020-07-15] MEDS: Levalbuterol Neb 1.25 MG/3 ML IH SCH ×3 (03:45→11:14)
[2020-07-15] MEDS: *HR* Heparin 5,000 UNIT/ML VIAL SQ SCH ×2 (06:12→14:30)
[2020-07-15] MEDS: Budesonide/Formoterol 160/4.5 1 PUFF INH IH SCH (07:25)
[2020-07-15] MEDS: *HR* Amiodarone 200 MG TABLET PO SCH (07:53)
[2020-07-15] MEDS: lisinopriL 20 MG TABLET PO SCH (07:53)
[2020-07-15] MEDS: Aspirin 81 MG TAB.CHEW PO SCH (07:53)
[2020-07-15] MEDS: Metoprolol XL (24 HR) Succ 50 MG TAB.ER.24H PO SCH (07:53)
[2020-07-15] MEDS: QUEtiapine Fumarate 25 MG TABLET PO SCH (07:53)
[2020-07-15] MEDS: Lactulose Oral Soln 20 GM/30 ML UDC PO SCH (07:54)
[2020-07-15] MEDS: Vitamin A AND D OINT 42.5 GM Tube TP SCH (07:54)
[2020-07-15] MEDS: Insulin LISPRO 300 UNITS/3 ML VIAL SQ SCH ×2 (07:54→14:05)
[2020-07-15 15:26] VITALS: BP 132/65
== END 2020-07-15 15:40 | DRG 222 ==
LOC: EMEROOARM 04:59 → ICNU 06:10
PROVIDERS: ADMIT Internal Medicine Cardiovascular Disease; ATTEND Internal Medicine Cardiovascular Disease

== ENCOUNTER 2020-07-18 20:57 | Inpatient (IN) ==
[2020-07-18] MEDS ORDERED: Isovue-370 500 ML BOTTLE IVP ONE (22:04)
[2020-07-18 22:15] LABS: Basophils % 0.8 %; Eosinophils # 0.2 K/mcL (0.0-0.6); Eosinophils % 3.8 %; Hematocrit 36.5 % (37.5-50.1); Hemoglobin 10.7 g/dL (12.9-16.9); Immature Granulocytes % 0.6 % (0-4); Lymphocytes # 0.5 K/mcL (0.6-4.6); Lymphocytes % 10.9 %; Mean Corpuscular HGB Conc 29.3 g/dL (31.6-35.5); Mean Corpuscular Hemoglobin 30.3 pg (28.0-33.3); Mean Corpuscular Volume 103.4 fL (83.0-100.0); Monocytes # 0.5 K/mcL (0.0-1.3); Monocytes % 9.5 %; Neutrophils # 3.7 K/mcL (1.6-8.9); Platelet Count 187 K/mcL (140-400); Red Blood Count 3.53 M/mcL (4.19-5.50); Red Cell Distribution Width 17.8 % (11.5-14.5); Segmented Neutrophils % 74.4 %
[2020-07-18 22:52] LABS: Alanine Aminotransferase 20 Units/L (7-52); Albumin 3.2 g/dL (3.5-5.7); Albumin/Globulin Ratio 1.3 (1.1-2.2); Alkaline Phosphatase 56 Units/L (34-104); Aspartate Amino Transferase 15 Units/L (13-39); BUN/Creatinine Ratio 19 (6-26); Bilirubin,Direct 0.1 mg/dL (0.0-0.2); Bilirubin,Indirect 0.5 mg/dL (0.0-1.0); Bilirubin,Total 0.6 mg/dL (0.3-1.0); Blood Urea Nitrogen 15 mg/dL (8-23); Calcium 9.1 mg/dL (8.6-10.3); Carbon Dioxide 37 mEq/L (23-29); Chloride 101 mEq/L (98-107); Globulin 2.5 g/dL (2.4-3.5); Glucose 263 mg/dL (70-105); Osmolality,Calculated 304 (280-300); Potassium 3.3 mEq/L (3.5-5.1); Sodium 142 mEq/L (136-145); Total Protein 5.7 g/dL (6.4-8.9); Troponin I 0.04 ng/mL (< 0.04); eGFR For African Americans > 60 (> 60); eGFR For Non-African Americans > 60 (> 60)
[2020-07-18 23:50] LABS: Adenovirus Not Detected (Not Detect); Coronavirus 229E Not Detected (Not Detect); Coronavirus HKU1 Not Detected (Not Detect); Coronavirus NL63 Not Detected (Not Detect); Coronavirus OC43 Not Detected (Not Detect)
[2020-07-18 23:51] LABS: Bordetella Pertussis Not Detected (Not Detect); Chlamydophila pneumoniae Not Detected (Not Detect); Human Metapneumovirus Not Detected (Not Detect); Human Rhinovirus/Enterovirus Not Detected (Not Detect); Influenza A Subtype 2009 H1 Not Detected (Not Detect); Influenza B Not Detected (Not Detect); Mycoplasma pneumoniae Not Detected (Not Detect); Parainfluenza Virus 1 Not Detected (Not Detect); Parainfluenza Virus 2 Not Detected (Not Detect); Parainfluenza Virus 3 Not Detected (Not Detect); Parainfluenza Virus 4 Not Detected (Not Detect); Respiratory Syncytial Virus Not Detected (Not Detect)
[2020-07-19] MEDS ORDERED: levoFLOXacin 750 MG/150 ML 750 MG/150 ML BAG IVPB ONE (00:16)
[2020-07-19] MEDS ORDERED: Furosemide 20 MG/2 ML VIAL IVP ONE (00:18)
[2020-07-19] MEDS ORDERED: Potassium Chloride Elixir 20 MEQ/15 ML UDC PO ONE (00:47)
[2020-07-19] MEDS ORDERED: Acetaminophen 325 MG TABLET PO PRN (01:01)
[2020-07-19] MEDS ORDERED: *HR* Promethazine 25 MG/ML VIAL IVP PRN (01:01)
[2020-07-19] MEDS ORDERED: Naloxone 0.4 MG/ML INJ IVP PRN (01:01)
[2020-07-19] MEDS ORDERED: D5% in Water 1,000 ML IVC PRN (02:06)
[2020-07-19] MEDS ORDERED: Dextrose Gel 15 GM/37.5 ML TUBE PO PRN ×2 (02:06)
[2020-07-19] MEDS ORDERED: *HR* Dextrose 50 % in Water (Vial) 50 ML VIAL IVP PRN (02:06)
[2020-07-19 02:20] LABS: Basophils % 0.6 %; Eosinophils # 0.2 K/mcL (0.0-0.6); Eosinophils % 3.5 %; Hematocrit 38.8 % (37.5-50.1); Hemoglobin 11.5 g/dL (12.9-16.9); Immature Granulocytes % 0.6 % (0-4); Lymphocytes # 0.6 K/mcL (0.6-4.6); Lymphocytes % 13.2 %; Mean Corpuscular HGB Conc 29.6 g/dL (31.6-35.5); Mean Corpuscular Hemoglobin 30.8 pg (28.0-33.3); Mean Platelet Volume 12.2 fL (9.4-12.4); Monocytes # 0.5 K/mcL (0.0-1.3); Monocytes % 10.1 %; Neutrophils # 3.5 K/mcL (1.6-8.9); Platelet Count 173 K/mcL (140-400); Red Blood Count 3.73 M/mcL (4.19-5.50); Red Cell Distribution Width 17.5 % (11.5-14.5); White Blood Count 4.8 K/mcL (4.3-11.1)
[2020-07-19 02:21] LABS: INR 1.1; Prothrombin Time 12.2 Seconds (9.4-12.1)
[2020-07-19 02:32] LABS: BUN/Creatinine Ratio 18 (6-26); Blood Urea Nitrogen 14 mg/dL (8-23); Calcium 8.9 mg/dL (8.6-10.3); Carbon Dioxide 34 mEq/L (23-29); Chloride 102 mEq/L (98-107); Glucose 246 mg/dL (70-105); Magnesium 1.9 mg/dL (1.6-2.6); Osmolality,Calculated 305 (280-300); Phosphorous 3.1 mg/dL (2.7-4.5); Potassium 3.4 mEq/L (3.5-5.1); Sodium 143 mEq/L (136-145); eGFR For African Americans > 60 (> 60); eGFR For Non-African Americans > 60 (> 60)
[2020-07-19] MEDS: Insulin LISPRO 300 UNITS/3 ML VIAL SQ SCH ×4 (02:53→16:55)
[2020-07-19 07:51] LABS: Troponin I 0.04 ng/mL (< 0.04)
[2020-07-19] MEDS ORDERED: Albuterol 2.5 MG/3 ML NEBULIZER IH PRN (09:40)
[2020-07-19] MEDS: predniSONE 20 MG TABLET PO SCH (10:03)
[2020-07-19] MEDS: Aspirin 81 MG TAB.CHEW PO SCH (10:30)
[2020-07-19] MEDS: *HR* Amiodarone 200 MG TABLET PO SCH (10:30)
[2020-07-19] MEDS: Metoprolol XL (24 HR) Succ 50 MG TAB.ER.24H PO SCH (10:30)
[2020-07-19 10:36] LABS: Albumin 3.2 g/dL (3.5-5.7); Albumin/Globulin Ratio 1.3 (1.1-2.2); Globulin 2.5 g/dL (2.4-3.5); Total Protein 5.7 g/dL (6.4-8.9)
[2020-07-19 10:37] LABS: RBC,Pleural Fluid 15000 RBC/mcL
[2020-07-19 10:40] LABS: Appearance of Pleural Fl Hazy (Clear)
[2020-07-19 10:42] LABS: Glucose,Pleural Fluid 215 mg/dL (No Ref Range); LDH,Pleural Fluid 129 Units/L (No Ref Range); Total Protein,Pleural Fluid < 3.0 g/dL
[2020-07-19] MEDS: Ipratropium/Albuterol Neb 3 ML IH SCH ×4 (11:12→23:52)
[2020-07-19] MEDS: Furosemide 40 MG/4 ML VIAL IVP SCH (12:22)
[2020-07-19] MEDS: levoFLOXacin 750 MG/150 ML 750 MG/150 ML BAG IVPB SCH (16:55)
[2020-07-19] MEDS: QUEtiapine Fumarate 25 MG TABLET PO SCH (19:56)
[2020-07-19] MEDS: Budesonide/Formoterol 160/4.5 1 PUFF INH IH SCH (20:11)
[2020-07-20 01:09] LABS: Hematocrit 32.2 % (37.5-50.1); Hemoglobin 9.6 g/dL (12.9-16.9); Mean Corpuscular HGB Conc 29.8 g/dL (31.6-35.5); Mean Corpuscular Hemoglobin 31.2 pg (28.0-33.3); Mean Corpuscular Volume 104.5 fL (83.0-100.0); Platelet Count 168 K/mcL (140-400); Red Blood Count 3.08 M/mcL (4.19-5.50); Red Cell Distribution Width 17.3 % (11.5-14.5); White Blood Count 4.8 K/mcL (4.3-11.1)
[2020-07-20 01:27] LABS: BUN/Creatinine Ratio 27 (6-26); Blood Urea Nitrogen 16 mg/dL (8-23); Calcium 8.5 mg/dL (8.6-10.3); Carbon Dioxide 38 mEq/L (23-29); Chloride 99 mEq/L (98-107); Glucose 256 mg/dL (70-105); Osmolality,Calculated 304 (280-300); Potassium 3.1 mEq/L (3.5-5.1); Sodium 142 mEq/L (136-145); eGFR For African Americans > 60 (> 60); eGFR For Non-African Americans > 60 (> 60)
[2020-07-20] MEDS: Ipratropium/Albuterol Neb 3 ML IH SCH ×6 (04:15→23:38)
[2020-07-20] MEDS ORDERED: Potassium Chloride 40 MEQ, Lidocaine 1% 2 ML in 0.9 % Sodium Chloride 500 ML IVPB ONE (07:24)
[2020-07-20] MEDS: Budesonide/Formoterol 160/4.5 1 PUFF INH IH SCH ×2 (07:39→19:44)
[2020-07-20] MEDS: Furosemide 40 MG/4 ML VIAL IVP SCH ×2 (08:21→21:02)
[2020-07-20] MEDS: Metoprolol XL (24 HR) Succ 50 MG TAB.ER.24H PO SCH (08:21)
[2020-07-20] MEDS: *HR* Amiodarone 200 MG TABLET PO SCH (08:21)
[2020-07-20] MEDS: lisinopriL 20 MG TABLET PO SCH (08:21)
[2020-07-20] MEDS: QUEtiapine Fumarate 25 MG TABLET PO SCH ×2 (08:21→21:01)
[2020-07-20] MEDS: predniSONE 20 MG TABLET PO SCH (08:21)
[2020-07-20] MEDS: Aspirin 81 MG TAB.CHEW PO SCH (08:21)
[2020-07-20] MEDS: Insulin LISPRO 300 UNITS/3 ML VIAL SQ SCH ×3 (08:22→17:06)
[2020-07-20] MEDS: levoFLOXacin 750 MG/150 ML 750 MG/150 ML BAG IVPB SCH (17:06)
[2020-07-21 01:52] LABS: Hematocrit 32.6 % (37.5-50.1); Hemoglobin 9.9 g/dL (12.9-16.9); Mean Corpuscular HGB Conc 30.4 g/dL (31.6-35.5); Mean Corpuscular Hemoglobin 30.4 pg (28.0-33.3); Mean Platelet Volume 12.7 fL (9.4-12.4); Platelet Count 168 K/mcL (140-400); Red Blood Count 3.26 M/mcL (4.19-5.50); Red Cell Distribution Width 17.2 % (11.5-14.5); White Blood Count 5.1 K/mcL (4.3-11.1)
[2020-07-21 02:16] LABS: BUN/Creatinine Ratio 25 (6-26); Blood Urea Nitrogen 21 mg/dL (8-23); Calcium 8.5 mg/dL (8.6-10.3); Carbon Dioxide 40 mEq/L (23-29); Chloride 96 mEq/L (98-107); Glucose 296 mg/dL (70-105); Osmolality,Calculated 306 (280-300); Potassium 3.2 mEq/L (3.5-5.1); Sodium 141 mEq/L (136-145); eGFR For African Americans > 60 (> 60); eGFR For Non-African Americans > 60 (> 60)
[2020-07-21] MEDS: Ipratropium/Albuterol Neb 3 ML IH SCH ×6 (03:14→23:27)
[2020-07-21] MEDS: Insulin LISPRO 300 UNITS/3 ML VIAL SQ SCH ×5 (03:57→20:03)
[2020-07-21] MEDS: Furosemide 40 MG/4 ML VIAL IVP SCH (07:31)
[2020-07-21] MEDS: *HR* Amiodarone 200 MG TABLET PO SCH (07:32)
[2020-07-21] MEDS: QUEtiapine Fumarate 25 MG TABLET PO SCH ×2 (07:32→20:03)
[2020-07-21] MEDS: Aspirin 81 MG TAB.CHEW PO SCH (07:32)
[2020-07-21] MEDS: Metoprolol XL (24 HR) Succ 50 MG TAB.ER.24H PO SCH (07:32)
[2020-07-21] MEDS: predniSONE 20 MG TABLET PO SCH (07:32)
[2020-07-21] MEDS: lisinopriL 20 MG TABLET PO SCH (07:33)
[2020-07-21] MEDS: Budesonide/Formoterol 160/4.5 1 PUFF INH IH SCH ×2 (07:57→20:17)
[2020-07-21 08:00] LABS: ABG Base Excess 17 mEq/L (-2 to 3); ABG HCO3 43 mEq/L (21-27); ABG Oxygen Saturation 91 % (95-98); ABG PCO2 59 mmHg (35-45); ABG PH 7.47 pH Units (7.32-7.45); ABG PO2 60 mmHg (85-104); ABG TCO2 45 mEq/L (20-26)
[2020-07-21] MEDS: levoFLOXacin 750 MG/150 ML 750 MG/150 ML BAG IVPB SCH (16:57)
[2020-07-22 02:49] LABS: Hematocrit 32.2 % (37.5-50.1); Hemoglobin 9.8 g/dL (12.9-16.9); Mean Corpuscular HGB Conc 30.4 g/dL (31.6-35.5); Mean Corpuscular Hemoglobin 30.7 pg (28.0-33.3); Mean Corpuscular Volume 100.9 fL (83.0-100.0); Mean Platelet Volume 12.4 fL (9.4-12.4); Platelet Count 157 K/mcL (140-400); Red Blood Count 3.19 M/mcL (4.19-5.50); Red Cell Distribution Width 17.2 % (11.5-14.5); White Blood Count 5.2 K/mcL (4.3-11.1)
[2020-07-22 03:06] LABS: BUN/Creatinine Ratio 24 (6-26); Blood Urea Nitrogen 17 mg/dL (8-23); Calcium 8.7 mg/dL (8.6-10.3); Carbon Dioxide 37 mEq/L (23-29); Chloride 98 mEq/L (98-107); Glucose 204 mg/dL (70-105); Osmolality,Calculated 299 (280-300); Potassium 3.3 mEq/L (3.5-5.1); Sodium 141 mEq/L (136-145); eGFR For African Americans > 60 (> 60); eGFR For Non-African Americans > 60 (> 60)
[2020-07-22] MEDS: Ipratropium/Albuterol Neb 3 ML IH SCH ×4 (03:22→15:30)
[2020-07-22] MEDS: Budesonide/Formoterol 160/4.5 1 PUFF INH IH SCH (07:40)
[2020-07-22] MEDS ORDERED: Potassium Chloride 40 MEQ, Lidocaine 1% 2 ML in 0.9 % Sodium Chloride 500 ML IVPB ONE (07:42)
[2020-07-22] MEDS: Metoprolol XL (24 HR) Succ 50 MG TAB.ER.24H PO SCH (07:57)
[2020-07-22] MEDS: Aspirin 81 MG TAB.CHEW PO SCH (07:57)
[2020-07-22] MEDS: QUEtiapine Fumarate 25 MG TABLET PO SCH (07:57)
[2020-07-22] MEDS: predniSONE 20 MG TABLET PO SCH (07:57)
[2020-07-22] MEDS: *HR* Amiodarone 200 MG TABLET PO SCH (07:57)
[2020-07-22] MEDS: lisinopriL 20 MG TABLET PO SCH (07:57)
[2020-07-22] MEDS: Insulin LISPRO 300 UNITS/3 ML VIAL SQ SCH ×3 (07:58→16:16)
[2020-07-22] MEDS ORDERED: Furosemide 40 MG/4 ML VIAL IVP SCH (09:00)
[2020-07-22] MEDS: Furosemide 40 MG TABLET PO SCH ×2 (10:57→17:57)
[2020-07-22 16:41] VITALS: BP 139/112
== END 2020-07-22 19:10 | DRG 280 ==
LOC: EMEROOARM 20:57 → 2NNU 20:57 → SUATTDRO 07-19 00:37 → 2NNU 07-19 01:00
PROVIDERS: ADMIT Student in an Organized Health Care Education/Training Program; ATTEND Family Medicine

== ENCOUNTER 2021-03-22 18:14 | Observation (INO) ==
[2021-03-22 20:29] LABS: Basophils # 0.1 K/mcL (0.0-0.2); Basophils % 0.4 %; Eosinophils # 0.1 K/mcL (0.0-0.6); Eosinophils % 0.6 %; Hematocrit 42.2 % (37.5-50.1); Hemoglobin 14.3 g/dL (12.9-16.9); Immature Granulocytes % 0.6 % (0-4); Lymphocytes # 0.9 K/mcL (0.6-4.6); Lymphocytes % 7.1 %; Mean Corpuscular HGB Conc 33.9 g/dL (31.6-35.5); Mean Corpuscular Hemoglobin 31.4 pg (28.0-33.3); Mean Corpuscular Volume 92.7 fL (83.0-100.0); Mean Platelet Volume 11.2 fL (9.4-12.4); Monocytes % 7.8 %; Neutrophils # 10.3 K/mcL (1.6-8.9); Platelet Count 190 K/mcL (140-400); Red Blood Count 4.55 M/mcL (4.19-5.50); Red Cell Distribution Width 13.1 % (11.5-14.5); Segmented Neutrophils % 83.5 %; White Blood Count 12.4 K/mcL (4.3-11.1)
[2021-03-22 20:50] LABS: BUN/Creatinine Ratio 20 (6-26); Blood Urea Nitrogen 25 mg/dL (8-23); Calcium 10.4 mg/dL (8.6-10.3); Carbon Dioxide 30 mEq/L (23-29); Chloride 99 mEq/L (98-107); Glucose 219 mg/dL (70-105); Osmolality,Calculated 297 (280-300); Sodium 138 mEq/L (136-145); eGFR For African Americans > 60 (> 60); eGFR For Non-African Americans 58 (> 60)
[2021-03-22 20:58] LABS: Troponin I < 0.03 ng/mL (< 0.04)
[2021-03-22] MEDS ORDERED: Ondansetron 4 MG/2 ML VIAL IVP PRN (21:59)
[2021-03-22] MEDS ORDERED: Naloxone 0.4 MG/ML INJ IVP PRN (21:59)
[2021-03-22] MEDS ORDERED: Acetaminophen 325 MG TABLET PO PRN (21:59)
[2021-03-22] MEDS ORDERED: D5% in Water 1,000 ML IVC PRN (22:02)
[2021-03-22] MEDS ORDERED: Dextrose Gel 15 GM/37.5 ML TUBE PO PRN ×2 (22:02)
[2021-03-22] MEDS ORDERED: *HR* Dextrose 50 % in Water (Vial) 50 ML VIAL IVP PRN (22:02)
[2021-03-22] MEDS ORDERED: 0.9 % Sodium Chloride 500 ML IVC PRN (22:03)
[2021-03-22 22:51] LABS: Prolactin 20.17 ng/mL (3.00-14.70)
[2021-03-22 22:52] LABS: Estimated Average Glucose 177 mg/dl; Hemoglobin A1C 7.8 %
[2021-03-22] MEDS ORDERED: *HR* LORazepam 1 MG TABLET PO PRN (23:47)
[2021-03-22 23:52] LABS: Bilirubin,Urine Negative (Negative); Blood,Urine Negative (Negative); Clarity,Urine Clear (Clear); Color,Urine Light-Yellow (Yellow); Glucose,Urine (UA) 500 mg/dL (Normal); Ketones,Urine Negative (Negative); Leukocyte Esterase,Urine Negative (Negative); Mucus,Urine Few per lpf (None-Few); Nitrite,Urine Negative (Negative); Protein,Urine Trace mg/dL (Neg-Trace); RBC,Urine 0-3 per hpf (0-3); Specific Gravity,Urine 1.024 (1.010-1.025); Squamous Epithelial Cell,Urine Few per hpf (None-Few); Urobilinogen,Urine Normal (Normal); WBC,Urine 0-3 per hpf (0-3)
[2021-03-23 00:06] LABS: Amphetamine Screen,Urine Negative ng/mL (Cutoff=1000); Barbiturate Screen,Urine Negative ng/mL (Cutoff=200); Benzodiazepines Screen,Urine Positive ng/mL (Cutoff=200); Cannabinoid Screen,Urine Positive ng/mL (Cutoff = 50); Cocaine Screen,Urine Negative ng/mL (Cutoff= 300); Opiate Screen,Urine Negative ng/mL (Cutoff=300); Phencyclidine Screen,Urine Negative ng/mL (Cutoff=25)
[2021-03-23] MEDS ORDERED: Melatonin 3 MG TABLET PO PRN (01:13)
[2021-03-23 05:49] LABS: Basophils % 0.4 %; Eosinophils # 0.1 K/mcL (0.0-0.6); Eosinophils % 1.7 %; Hematocrit 42.4 % (37.5-50.1); Hemoglobin 14.2 g/dL (12.9-16.9); Immature Granulocytes % 0.7 % (0-4); Lymphocytes # 1.3 K/mcL (0.6-4.6); Lymphocytes % 15.6 %; Mean Corpuscular HGB Conc 33.5 g/dL (31.6-35.5); Mean Corpuscular Hemoglobin 31.8 pg (28.0-33.3); Mean Corpuscular Volume 95.1 fL (83.0-100.0); Mean Platelet Volume 10.9 fL (9.4-12.4); Monocytes # 0.9 K/mcL (0.0-1.3); Monocytes % 10.3 %; Platelet Count 170 K/mcL (140-400); Red Blood Count 4.46 M/mcL (4.19-5.50); Segmented Neutrophils % 71.3 %; White Blood Count 8.4 K/mcL (4.3-11.1)
[2021-03-23 05:55] LABS: INR 1.1; Prothrombin Time 12.5 Seconds (9.4-12.1)
[2021-03-23 08:06] LABS: Alanine Aminotransferase 22 Units/L (7-52); Albumin 3.9 g/dL (3.5-5.7); Albumin/Globulin Ratio 1.6 (1.1-2.2); Alkaline Phosphatase 55 Units/L (34-104); Aspartate Amino Transferase 25 Units/L (13-39); BUN/Creatinine Ratio 19 (6-26); Bilirubin,Total 0.8 mg/dL (0.3-1.0); Blood Urea Nitrogen 22 mg/dL (8-23); Calcium 9.9 mg/dL (8.6-10.3); Carbon Dioxide 23 mEq/L (23-29); Chloride 105 mEq/L (98-107); Chol/HDL Ratio 4.7 (0-4.9); Cholesterol 141 mg/dL (< 200); Globulin 2.5 g/dL (2.4-3.5); Glucose 158 mg/dL (70-105); HDL Cholesterol 30 mg/dL (40-59); LDL Cholesterol,Calculated 66 mg/dL (< 100); Osmolality,Calculated 293 (280-300); Phosphorous 2.6 mg/dL (2.7-4.5); Potassium 3.8 mEq/L (3.5-5.1); Sodium 138 mEq/L (136-145); Thyroid Stimulating Hormone 3.064 mcIU/mL (0.340-5.600); Total Protein 6.4 g/dL (6.4-8.9); Triglycerides 223 mg/dL (< 150); eGFR For African Americans > 60 (> 60); eGFR For Non-African Americans > 60 (> 60)
[2021-03-23] MEDS ORDERED: *HR* Enoxaparin 40 MG/0.4 ML SYRINGE SQ SCH (09:00)
[2021-03-23] MEDS: Insulin LISPRO 300 UNITS/3 ML VIAL SUBQ SCH ×2 (09:20→12:56)
[2021-03-23] MEDS ORDERED: Aspirin 81 MG TAB.CHEW PO SCH (14:00)
[2021-03-23 14:45] VITALS: BP 165/80
[2021-03-23] MEDS ORDERED: hydroCHLOROthiazide 25 MG TABLET PO SCH (18:00)
[2021-03-23] MEDS ORDERED: lisinopriL 20 MG TABLET PO SCH (18:00)
[2021-03-23] MEDS ORDERED: Insulin DETEMIR 100 UNIT/ML X5UNITS SUBQ SCH (18:00)
[2021-03-23] MEDS ORDERED: Spironolactone 25 MG TABLET PO SCH (18:00)
[2021-03-23] MEDS ORDERED: Insulin LISPRO 300 UNITS/3 ML VIAL SUBQ SCH (21:00)
[2021-03-23] MEDS ORDERED: Mirtazapine 15 MG TABLET PO SCH (21:00)
[2021-03-23] MEDS ORDERED: Budesonide/Formoterol 160/4.5 1 PUFF INH IH SCH (22:00)
== END 2021-03-23 17:15 | disposition home or self-care (01) ==
LOC: EMEROOARM 18:14 → 3ANU 18:14 → SUATTDRO 22:04 → 3ANU 22:39
PROVIDERS: ADMIT Internal Medicine; ATTEND Internal Medicine